=== PATIENT | female | born 1960 | race Caucasian/White ===

== ENCOUNTER 2023-08-01 16:01 | Emergency (ER) | payer OTHER, SELFPAY ==
[2023-08-01 16:06] VITALS: BP 145/49; PULSE 86; RESP 18; O2SAT 99; BMI 28.8
--- NOTE | 2023-08-01 16:20 | PC.NURSE ---
Right ring finger red and swollen, patient denies injury to area, ice pack applied.
--- NOTE | 2023-08-01 16:37 | PC.NURSE ---
Patient has ice on right hand, swelling to ring finger slightly decreased with use of ice.
--- NOTE | 2023-08-01 17:15 | PC.NURSE ---
Ring removed from right ring finger using tourniquet and KY jelly. Right ring finger remains red and swollen, ice pack reapplied after ring removal.
--- NOTE | 2023-08-01 17:21 | ED.EXTPRO1 ---
HPI - Extremity Problem General Chief complaint: Extremity Problem, Nontraumatic Stated complaint: Upper Pain Time Seen by Provider: 08/01/23 17:15 Source: patient Mode of arrival: walk-in History of Present Illness HPI Narrative: patient had pain and swelling noted over her distal phalanx of her right ring finger. She denies any history of trauma or injury. She is not running a fever. She has no immunocompromising diseases. She denies any history of diabetes or previous infections. She's not had fever shakes or chills. Has no other soft tissue infections. She is otherwise healthy. She's not on any antibiotics. Related Data Home Medications Medication Instructions Recorded Confirmed No Known Home Medications 08/01/23 08/01/23 Allergies Allergy/AdvReac Type Severity Reaction Status Date / Time morphine AdvReac Intermediate Verified 08/01/23 16:06 penicillin G AdvReac Intermediate Verified 08/01/23 16:06 Sulfa (Sulfonamide AdvReac Intermediate Verified 08/01/23 16:06 Antibiotics) Exam Narrative Exam Narrative: problem focused examination shows modest early soft tissue swelling at the base of the nail the right ring finger there is no felon or abscess. The pulp space of the distal phalanx is not tender most of this is on the dorsum surface of the distal phalanx only. The forearm and the wrist are normal. No evidence of viral lesions Constitutional Vital Signs, click to edit/add: Last Vital Signs Pulse 86 08/01/23 16:06 Resp 18 08/01/23 16:06 BP 145/49 H 08/01/23 16:06 Pulse Ox 99 08/01/23 16:06 O2 Del Method Room Air 08/01/23 16:06 Course Vital Signs Vital signs: Vital Signs Pulse Rate 86 08/01/23 16:06 Respiratory Rate 18 08/01/23 16:06 Blood Pressure 145/49 H 08/01/23 16:06 Pulse Oximetry 99 08/01/23 16:06 Oxygen Delivery Method Room Air 08/01/23 16:06 Pulse Rate 86 08/01/23 16:06 Respiratory Rate 18 08/01/23 16:06 Blood Pressure 145/49 H 08/01/23 16:06 Pulse Oximetry 99 08/01/23 16:06 Oxygen Delivery Method Room Air 08/01/23 16:06 Discharge Plan Discharge Chief Complaint: Extremity Problem, Nontraumatic Clinical Impression: Infected finger Patient Disposition: Home, Self-Care Time of Disposition Decision: 17:22 Prescriptions / Home Meds: No Action No Known Home Medications Additional Instructions: Keflex four times a day, take two tonight/continue warm compresses/topical bacitracin Stand Alone Forms: Portal Instructions Referrals: Physician,Non-Staff, MD [Primary Care Provider] - 1 week
== END 2023-08-01 17:31 | disposition home or self-care (01) ==
PROVIDERS: Emergency Provider Emergency Medicine Emergency Medical Services
DX: L08.9 Local infection of the skin and subcutaneous tissue, unspecified (principal)
CPT/HCPCS: 99283

== ENCOUNTER 2023-11-13 16:58 | Emergency (ER) | payer OTHER, SELFPAY ==
[2023-11-13] VITALS (13 sets, daily range): BP systolic 139–158; BP diastolic 82–91; PULSE 56–67; TEMP 36.4; O2SAT 96–100; BMI 28.4
--- NOTE | 2023-11-13 17:07 | ECG_ITS ---
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
[2023-11-13] MEDS: KETOROLAC TROMETHAMINE 30 MG/ML VIAL 15 MG IVP (17:18)
[2023-11-13] MEDS: 0.9 % SODIUM CHLORIDE 1,000 ML 1000 ML IV (17:18)
[2023-11-13] MEDS: ONDANSETRON PF 4 MG/2 ML VIAL IV (17:18)
--- OUTSIDE RECORDS SUMMARY | 2023-11-13 17:28 | XMS_ITS | CCD ---
Author Organization [facility] Care Team Providers Care Grain Miller Helper Name Role Phone Kirstin Wei Primary Care Provider [phone] Nata WOODARD - CHRONOMETER ADJUSTERAlexys Primary Care Provide r ALEXYS HOWARD Primary Care Unavailable VANNESA MUELLER Referring Unavailable VANNESA MUELLER Referring Unavailable ALEXYS HOWARD Primary Care Unavailable Chadd WOODARD - CHRONOMETER ADJUSTER, Jenelle Barrera [facility] Primary Care Unavailable PAY ., DR MEJIA Admitting Unavailable PAY ., DR MEJIA Attending Unavailable Mansoor Galvez Consulting Unavailable MANDY ., KASIE DE LA VEGA Consulting Unavailgeo e Chadd MICROFABRICATION ENGINEER MANAGER - CHRONOMETER ADJUSTER, Jenelle Bruce Primary Care Provide r JENELLE FLORENTINO Primary Care Unavailable JENELLE FLORENTINO M Referring Unavailable TIARRA FLORENTINOH M Primary Care Unavailable MALLORY, SARAH N Admitting Unavailable SARAH TAMEZ Attending Unavailable JENELLE FLORENTINO M Primary Care Unavailable MALLORY, SARAH N Referring Unavailable DIDI FLORENTINONAH M Primary Care Unavailable TIARRA FLORENTINOH M Referring Unavailable CHADD JENELLE M Primary Care Unavailable DIDI FLORENTINONAH M Referring Unavailable BROOK MINER Attending Unavailable Allergies Allergy Classification Reported Allergen(s) Allergy Type Date of Onset Reaction(s) Facility (5 sources) Latex Propensity to adverse reactions to drug 0 Rash [facility] [place] (4 sources) Grass pollen Propensity to adverse reactions to drug 1 [employer] [facility] Phone: (4 sources) MITE EXTRACT Drug Allergy 1 [employer] Phone: (4 sources) Mold Extract Drug Allergy [facility] [employer] Phone: (4 sources) Naproxen Drug Allergy 1 [employer] (4 sources) Penicillins Propensity to adverse reactions to drug 1 [employer] Phone: (4 sources) Sulfonamides (Antibiotic) Propensity to adverse reactions to drug 1 [employer] Phone: (4 sources) watermelon preparation Drug Allergy 1 [employer] Phone: (4 sources) Morphine And Related Propensity to adverse reactions to drug 1 Other (See Comments) [employer] Phone: (4 sources) Soybean-Containi ng Drug Products Propensity to adverse reactions to drug 1 [employer] Phone: (4 sources) Tree Extract Propensity to adverse reactions to drug 1 [employer] Phone: (1 source) Melon Drug allergy (disorder) 3 [facility] (1 source) Morphine Drug Allergy 3 [facility] (1 source) Penicillin Drug Allergy 3 [facility] (1 source) Soy protein Drug allergy (disorder) 3 [facility] (1 source) Sulfonamides (Antibiotic) Drug allergy (disorder) 3 [facility] NEGATED: Highlighted row has been ruled out! (4 sources) Other Propensity to adverse reactions 1 [employer] Phone: Medications Current Medications Medication Drug Class(es) Dates Sig (Normalized) Sig (Original) calamine 80 mg/ml / zinc oxide 80 mg/ml topical lotion (1 source) Start: 0 V-R CALAMINE LOTN Apply 10 mLs topically 2 times daily as needed (Itching) 177 mL 0 02/20/2020 Active calcium chloride 0.0014 meq/ml / potassium chloride 0.004 meq/ml / sodium chloride 0.103 meq/ml / sodium lactate 0.028 meq/ml injectable solution (1 source) Start: 3 lactated ringers IV soln infusion methylPREDNISolone 4 mg oral tablet (1 source) Corticosteroid Start: 0 End: 0 methylPREDNISolone (MEDROL, FRANCK,) 4 MG tablet Take by mouth. 1 kit 0 02/20/2020 02/26/2020 Active Zinc (2 sources) take 1 tablet by mouth once daily zinc 50 MG TABS tablet Take 50 mg by mouth daily 0 Active Completed/Discontinued Medications Medication Drug Class(es) Dates Sig (Normalized) Sig (Original) cholecalciferol 0.05 mg oral capsule (4 sources) Vitamin D take 2 capsules by mouth once daily Cholecalciferol (VITAMIN D3) 50 MCG (1999) CAPS Take 2 capsules by mouth daily 0 Suspended magnesium oxide 500 mg oral capsule (2 sources) take 1 capsule by mouth once daily Magnesium 500 MG CAPS Take 1 capsule by mouth nightly 0 Suspended Multiple Vitamins-Minerals (THERAPEUTIC MULTIVITAMIN-MINERALS) tablet (4 sources) take 1 tablet by mouth once daily Multiple Vitamins-Minerals (THERAPEUTIC MULTIVITAMIN-MINERALS) tablet Take 1 tablet by mouth daily 0 Suspended take 1 tablet by mouth once zhanna y Multiple Vitamins-Minerals (THERAPEUTIC MULTIVITAMIN-MINERALS) tablet Take 1 tablet by mouth daily 0 Active potassium gluconate 2.5 meq oral tablet (2 sources) take 1 tablet by mouth once daily Potassium Gluconate 595 (99 K) MG TABS Take 1 tablet by mouth nightly 0 Suspended predniSONE 20 mg oral tablet (1 source) Start: 02-20-2020 End: 02-20-2020 predniSONE (DELTASONE) tablet 40 mg Start: 02-20-2020 End: 02-20-2020 predniSONE (DELTASONE) table t 40 mg zinc gluconate 50 mg oral tablet (2 sources) take 1 tablet by aniceto once daily zinc 50 MG TABS tablet Take 1 tablet by mouth daily 0 Suspended Problems Active Problems Problem Classification Problem Date Documented Date Episodic/Chronic Asthma (3 sources) Asthma; Translations: [Unspecified asthma, uncomplicated] Onset: 08-24-2022 08-24-2022 Chronic Influenza (1 source) Influenza due to unidentified influenza virus with other respiratory manifestations; Translations: [FLU D/T UNIDENT FLU VIR RESP MANIF] Onset: 10-19-2022 Episodic Other screening for suspected conditions (not mental disorders or infectious disease) (5 sources) Patient encounter status; Translations: [Encounter for screening for lipoid disorders] Onset: 08-24-2022 Episodic Residual codes; unclassified (1 source) Postmenopausal state; Translations: [Asymptomatic menopausal state] Episodic Residual codes; unclassified (1 source) Asymptomatic menopausal state; Translations: [Asymptomatic menopausal state] Onset: 03-09-2023 Episodic Unclassified (2 sources) Patient encounter status; Translations: [Well woman exam (no gynecological exam)] Unclassified (3 sources) COUGH, UNSPECIFIED; Translations: [COUGH, UNSPECIFIED] Onset: 10-19-2022 Unclassified (1 source) CONTACT W/AND (SUSP) EXPOS COVID-19; Translations: [CONTACT W/AND (SUSP) EXPOS COVID-19] Onset: 10-19-2022 Past or Other Problems Problem Classification Problem Date Documented Da te Episodic/Chronic Allergic reactions (5 sources) Urticaria; Translations: [History of immune disorder] Onset: 06-02-2021 06-02-2021 Episodic Cancer of cervix (3 sources) History of malignant neoplasm of cervix; Translations: [Personal history of malignant neoplasm of cervix uteri] Onset: 08-24-2022 08-24-2022 Episodic Fracture of upper limb (4 sources) Fracture of hand; Translations: [Unspecified fracture of unspecified wrist and hand, initial encounter for closed fracture] Onset: 06-02-2021 06-02-2021 Episodic Immunizations and screening for infectious disease (4 sources) Viral screening status; Translations: [Encounter for screening for other viral diseases] Onset: 08-24-2022 Episodic Other bone disease and musculoskeletal deformities (6 sources) Osteopenia; Translations: [Other specified disorders of bone density and structure, unspecified site] Onset: 06-02-2021 06-02-2021 Episodic Other bone disease and musculoskeletal deformities (1 source) Other specified disorders of bone density and structure, unspecified site; Translations: [Other specified disorders of bone density and structure, unspecified site] Onset: 06-02-2021 Episodic Residual codes; unclassified (4 sources) Family history of diabetes mellitus; Translations: [Family history of diabetes mellitus] Onset: 08-24-2022 Episodic Residual codes; unclassified (1 source) Family history of diabetes mellitus; Translations: [Family history of diabetes mellitus] Onset: 08-24-2022 Episodic Unclassified (1 source) COUGH, UNSPECIFIED; Translations: [COUGH, UNSPECIFIED] Onset: 10-15-2022 Results Test Name Value Interpretation Reference Range Facil it Colonoscopy studyon 04-12-20 No dictation [facility] Colonoscopy studyOrdered By: User Epic on 04-12-2023 [facility] [employer] Work Phone: Surgical Pathology Reporton 04-12-2023 Surgical Pathology Report (NOTE) Path Number: [id number] -- Diagnosis -- A. SIGMOID POLYP, BIOPSY: Hyperplastic polyp. Kena Ga M.D. Electronically Signed Out kmg2/04/14/2023 Clinical Information Pre-Op Diagnosis: COLON CANCER SCREENING Operative Findings: SIGMOID COLON POLYP Operation Performed: COLORECTAL CANCER SCREENING, NOT HIGH RISK cd Source of Specimen A: SIGMOID POLYP Gross Description LOUISE JOHNSON SIGMOID COLON POLYP Received in formalin is one garcia-white tissue fragment, 0.5 x 0.3 x 0.3 cm. Entirely 1cs. jj tm SHAGGY/cd1:04/12/2023 Microscopic Description Microscopic examination performed. Processing Lab: [address] [id number] Interpretation Performed at [address] [id number] SURGICAL PATHOLOGY CONSULTATION Patient Name: LOIUSE JOHNSON [facility] Rec: [id number] [facility] [employer] [facility] ANATOMIC PATHOLOGY [address] [place] [address]. [place], [place] [address] [facility] DEXA BONE DENSITY AXIAL SKEL ETONon 03-09-2023 DEXA BONE DENSITY AXIAL SKELETON EXAMINATION: BONE DENSITOMETRY 03/09/2023 1:16 pm TECHNIQUE: A bone density dual x-ray absorptiometry (DXA) scan was performed of the left hip and left forearm on a Employee Benefit Plans system. COMPARISON: 01/03/2020 HISTORY: ORDERING SYSTEM PROVIDED HISTORY: Osteopenia, unspecified location Gender: F Age: 62 y/o FINDINGS: LEFT TOTAL HIP: BMD: 0.827 g/cm2 T-score: -1.4 Z-score: -0.5 LEFT FEMORAL NECK: BMD: 0.772 g/cm2 T-score: -1.9 Z-score: -0.7 There has been no statistically significant change in the bone mineral density of the total hip since the prior exam date listed above. LEFT FOREARM (RADIUS 1/3) BMD: 0.741 g/cm2 T-score: -1.5 Z-score: -0.3 FRAX: 10-year fracture risk is performed using the [employer] FRAX calculator based on patient-reported risk factors. Major osteoporotic fracture: 10.0% Hip fracture: 1.3% Other situations known to alter the reliability of the FRAX score should be considered when making treatment decisions, including chronic glucocorticoid use and past treatments. Further guidance on treatment can be found at the National Osteoporosis Foundation's website bonesource.org. IMPRESSION: Osteopenia by WHO criteria. RECOMMENDATIONS: 1. All patients should optimize their calcium and vitamin D intake. 2. Consider FDA-approved medical therapies in postmenopausal women and men aged 50 years and older, based on the following: - A hip or vertebral (clinical or morphometric) fracture - T-score less than or equal to -2.5 at the femoral neck or spine after appropriate evaluation to exclude secondary causes - Low bone density (T-score between -1.0 and -2.5 at the femoral neck or spine) and a 10-year probability of a hip fracture greater than or equal to 3% or a 10-year probability of a major osteoporosis-related fracture greater than or equal to 20% based on FRAX calculation. - Clinician judgment and/or patient preferences may indicate treatment for people with 10-year fracture probabilities above or below these levels - Further guidance on treatment can be found at the National Osteoporosis Foundation's website bonesource.org. 3. Patients with diagnosis of osteoporosis or at high risk for fracture should have regular bone mineral density tests. For patients eligible for Medicare, routine testing is allowed once every 2 years. The testing frequency can be increased to one year for patients who have rapidly progressing disease, those who are receiving or discontinuing medical therapy to restore bone mass or have additional risk factors. Template code: [id number] Interpreted by: Brian Kline MD Signed by: Brian Kline MD 03/09/23 Final result Normal [facility] Osteopenia by WHO criteria. RECOMMENDATIONS: 1. All patients should optimize their calcium and vitamin D intake. 2. Consider FDA-approved medical therapies in postmenopausal women and men aged 50 years and older, based on the following: - A hip or vertebral (clinical or morphometric) fracture - T-score less than or equal to -2.5 at the femoral neck or spine after appropriate evaluation to exclude secondary causes - Low bone density (T-score between -1.0 and -2.5 at the femoral neck or spine) and a 10-year probability of a hip fracture greater than or equal to 3% or a 10-year probability of a major osteoporosis-related fracture greater than or equal to 20% based on FRAX calculation. - Clinician judgment and/or patient preferences may indicate treatment for people with 10-year fracture probabilities above or below these levels - Further guidance on treatment can be found at the National Osteoporosis Foundation's website bonesource.org. 3. Patients with diagnosis of osteoporosis or at high risk for fracture should have regular bone mineral density tests. For patients eligible for Medicare, routine testing is allowed once every 2 years. The testing frequency can be increased to one year for patients who have rapidly progressing disease, those who are receiving or discontinuing medical therapy to restore bone mass or have additional risk factors. Template code: [id number] [facility] EXAMINATION: BONE DENSITOMETRY 03/09/2023 1:16 pm TECHNIQUE: A bone density dual x-ray absorptiometry (DXA) scan was performed of the left hip and left forearm on a Employee [employer] system. COMPARISON: 01/03/2020 HISTORY: ORDERING SYSTEM PROVIDED HISTORY: Osteopenia, unspecified location Gender: F Age: 62 y/o FINDINGS: LEFT TOTAL HIP: BMD: 0.827 g/cm2 T-score: -1.4 Z-score: -0.5 LEFT FEMORAL NECK: BMD: 0.772 g/cm2 T-score: -1.9 Z-score: -0.7 There has been no statistically significant change in the bone mineral density of the total hip since the prior exam date listed above. LEFT FOREARM (RADIUS 1/3) BMD: 0.741 g/cm2 T-score: -1.5 Z-score: -0.3 FRAX: 10-year fracture risk is performed using the [employer] FRAX calculator based on patient-reported risk factors. Major osteoporotic fracture: 10.0% Hip fracture: 1.3% Other situations known to alter the reliability of the FRAX score should be considered when making treatment decisions, including chronic glucocorticoid use and past treatments. Further guidance on treatment can be found at the National Osteoporosis Foundation's website bonesource.org. [facility] Brian Saunders MD - 03/09/2023 EXAMINATION: BONE DENSITOMETRY 03/09/2023 1:16 pm TECHNIQUE: A bone density dual x-ray absorptiometry (DXA) scan was performed of the left hip and left forearm on a [employer] system. COMPARISON: 01/03/2020 HISTORY: ORDERING SYSTEM PROVIDED HISTORY: Osteopenia, unspecified location Gender: F Age: 62 y/o FINDINGS: LEFT TOTAL HIP: BMD: 0.827 g/cm2 T-score: -1.4 Z-score: -0.5 LEFT FEMORAL NECK: BMD: 0.772 g/cm2 T-score: -1.9 Z-score: -0.7 There has been no statistically significant change in the bone mineral density of the total hip since the prior exam date listed above. LEFT FOREARM (RADIUS 1/3) BMD: 0.741 g/cm2 T-score: -1.5 Z-score: -0.3 FRAX: 10-year fracture risk is performed using the [employer] FRAX calculator based on patient-reported risk factors. Major osteoporotic fracture: 10.0% Hip fracture: 1.3% Other situations known to alter the reliability of the FRAX score should be considered when making treatment decisions, including chronic glucocorticoid use and past treatments. Further guidance on treatment can be found at the National Osteoporosis Foundation's website bonesource.org. IMPRESSION: Osteopenia by WHO criteria. RECOMMENDATIONS: 1. All patients should optimize their calcium and vitamin D intake. 2. Consider FDA-approved medical therapies in postmenopausal women and men aged 50 years and older, based on the following: - A hip or vertebral (clinical or morphometric) fracture - T-score less than or equal to -2.5 at the femoral neck or spine after appropriate evaluation to exclude secondary causes - Low bone density (T-score between -1.0 and -2.5 at the femoral neck or spine) and a 10-year probability of a hip fracture greater than or equal to 3% or a 10-year probability of a major osteoporosis-related fracture greater than or equal to 20% based on FRAX calculation. - Clinician judgment and/or patient preferences may indicate treatment for people with 10-year fracture probabilities above or below these levels - Further guidance on treatment can be found at the National Osteoporosis Foundation's website bonesource.org. 3. Patients with diagnosis of osteoporosis or at high risk for fracture should have regular bone mineral density tests. For patients eligible for Medicare, routine testing is allowed once every 2 years. The testing frequency can be increased to one year for patients who have rapidly progressing disease, those who are receiving or discontinuing medical therapy to restore bone mass or have additional risk factors. Template code: [id number] [facility] Radiology Study observation (narrative) [facility] DEXA BONE DENSITY AXIAL SKEL ETONOrdered By: Brian Morales on 03-09-2023 [facility] Work Phone: [facility] DIGITAL SCREEN KATIEMichelle BOSEGaviota 03-09-2023 [facility] DIGITAL SCREEN BILATERAL EXAMINATION: SCREENING DIGITAL BILATERAL MAMMOGRAM WITH TOMOSYNTHESIS, 03/09/2023 TECHNIQUE: Screening mammography was performed with tomosynthesis including MLO and CC views of the bilateral breasts. Computer aided detection was used for the interpretation of this exam. COMPARISON: January 03, 2020 and March 26, 2016 HISTORY: Screening. FINDINGS: Breasts are composed of scattered fibroglandular density. There is no dominant mass, architectural distortion or concerning grouping of microcalcification in either breast. IMPRESSION: No mammographic evidence of malignancy BIRADS: BIRADS - CATEGORY 1 Negative. Normal interval follow-up is recommended in 12 months. OVERALL ASSESSMENT - NEGATIVE A letter of notification will be sent to the patient regarding the results. The [employer] recommends annual mammograms for women 40 years and older. Interpreted by: Shaun Nguyen DO Signed by: Shaun Nguyen DO 03/09/23 Final result Normal [facility] BNPon 10-15-2022 Natriuretic peptide B (Bld) [Mass/Vol] 113.0 pg/mL Normal <=900.0 [facility] Comment on above: Performed By: #### C MP, BNP, HSTROPN #### [facility] [address] [place] [address] Dr. Roger Christianson CBC AUTO DIFFon 10-15-2022 BASO # 0.0 103/ul Normal 0.0-0.1 [facility] Comment on above: Performed By: #### C BC #### [facility] [address] [place] [address] Dr. Roger Christianson Basophils/100 WBC (Bld) 0.1 % Critically low 0.2-2.0 [facility] Comment on above: Performed By: #### C BC #### [facility] [address] [place] [address] Dr. Roger Christianson EO # 0.1 103/ul Normal 0.0-0.7 [facility] Comment on above: Performed By: #### C BC #### [facility] [address] [place] [address] Dr. Roger Christianson Eosinophils/100 WBC (Bld) 0.4 % Critically low 0.9-7.0 [facility] Comment on above: Performed By: #### C BC #### [facility] [address] [place] [address] Dr. Roger Christianson Erythrocyte distribution width (RBC) [Ratio] 12.8 % Normal 11.0-15.0 [facility] Comment on above: Performed By: #### C BC #### [facility] [address] [place] [address] Dr. Roger Christianson Hematocrit (Bld) [Volume fraction] 44.5 % Normal 36.0-48.0 [facility] Comment on above: Performed By: #### C BC #### [facility] [address] [place] [address] Dr. Roger Christianson Hemoglobin (Bld) [Mass/Vol] 14.8 g/dL Normal 12.0-16.0 [facility] Comment on above: Performed By: #### C BC #### [facility] [address] [place] [address] Dr. Roger Christianson IG # 0.06 10e3/ul Critically high 0.00-0.03 [facility] Comment on above: Performed By: #### C BC #### [facility] [address] [place] [address] Dr. Roger Christianson IG % 0.4 % Normal 0.0-0.5 [facility] Comment on above: Performed By: #### C BC #### [facility] [address] [place] [address] Dr. Roger Christianson LYMPH # 1.0 103/ul Critically low 1.2-3.8 [facility] Comment on above: Performed By: #### C BC #### [facility] [address] [place] [address] Dr. Roger Christianson Lymphocytes/100 WBC (Bld) 7.4 % Critically low 20.5-60.0 [facility] Comment on above: Performed By: #### C BC #### [facility] [address] [place] [address] Dr. Roger Christianson MANUAL DIFF REQ NO Normal [facility] Comment on above: Performed By: #### C BC #### [facility] [address] [place] [address] Dr. Roger Christianson MCH (RBC) [Entitic mass] 28.6 pg Normal 26.7-34.0 [facility] Comment on above: Performed By: #### C BC #### [facility] [address] [place] [address] Dr. Roger Christianson MCHC (RBC) [Mass/Vol] 33.3 g/dL Normal 29.9-35.2 [facility] Comment on above: Performed By: #### C BC #### [facility] [address] [place] [address] Dr. Roger Christianson MCV (RBC) [Entitic vol] 86.1 fL Normal 81.0-99.0 [facility] Comment on above: Performed By: #### C BC #### [facility] [address] [place] [address] Dr. Roger Christianson MONO # 0.2 103/ul Critically low 0.3-0.8 [facility] Comment on above: Performed By: #### C BC #### [facility] [address] [place] [address] Dr. Roger Christianson Monocytes/100 WBC (Bld) 1.5 % Critically low 1.7-12.0 [facility] Comment on above: Performed By: #### C BC #### [facility] [address] [place] [address] Dr. Roger Christianson NEUT # 12.3 103/ul Critically high 1.4-6.5 [facility] Comment on above: Performed By: #### C BC #### [facility] [address] [place] [address] Dr. Roger Christianson Neutrophils/100 WBC (Bld) 90.2 % Critically high 43.0-75.0 [facility] Comment on above: Performed By: #### C BC #### [facility] [address] [place] [address] Dr. Roger Christianson Platelet mean volume (Bld) [Entitic vol] 10.3 fL Normal 9.5-13.5 [facility] Comment on above: Performed By: #### C BC #### [facility] [address] [place] [address] Dr. Roger Christianson PLT 256 103/ul Normal 150-450 [facility] Comment on above: Performed By: #### C BC #### [facility] [address] [place] [address] Dr. Roger Christianson RBC 5.17 106/ul Normal 4.20-5.40 [facility] Comment on above: Performed By: #### C BC #### [facility] [address] [place] [address] Dr. Roger Christianson WBC 13.6 103/ul Critically high 4.0-11.0 [facility] Comment on above: Performed By: #### C BC #### [facility] [address] [place] [address] Dr. Roger Christianson CULTURE BLOODon 10-15-2022 Microscopic examination of blood, culture Culture Observations: NO GROWTH AT 5 DAYS. Normal [facility] Comment on above: Performed By: #### B LDCX1 #### [facility] [address] [place] [address] Dr. Roger Christianson Performed By: #### B LDCX2 #### [facility] [address] [place] [address] Dr. Roger Christianson [facility] SARS-CoV-2 (COVID-19) RNA BRYANNA+probe Ql (Unsp spec) Not detected Normal NOT DETECTED [facility] Comment on above: Result Comment: When diagnostic testing is negative, the possibility of a false negative should be considered in the context of a patient's recent exposures and the presence of clinical signs and symptoms consistent with SARS-CoV-2. This test is not yet approved or cleared by the [place] FDA. When there are no FDA-approved or cleared tests available, and other criteria are met, FDA can make tests available under an emergency access mechanism called an Emergency Use Authorization (EUA). The EUA for this test is supported by the Filling And Packing Supervisor of Health and Human Service's declaration that circumstances exist to justify the emergency use of in vitro diagnostics for the detection and/or diagnosis of the virus that causes COVID-19. This EUA will remain in effect for the duration of the COVID-19 declaration justifying emergency of IVDs, unless it is terminated or revoked by the FDA (after which the test may no longer be used). Performed By: #### C VDTBH #### [facility] [address] [place] [address] Dr. Roger Christianson PROF 14(COMP METB)on 023 Albumin [Mass/Vol] 3.8 g/dL Normal 3.4-5.0 [facility] Comment on above: Performed By: #### C MP, BNP, HSTROPN #### [facility] [address] [place] [address] Dr. Roger Christianson Albumin/Globulin [Mass ratio] 1.1 {ratio} Normal [facility] Comment on above: Performed By: #### C MP, BNP, HSTROPN #### [facility] [address] [address] [address] Roger Christianson ALP [Catalytic activity/Vol] 77 U/L Normal 46-116 [facility] Comment on above: Performed By: #### C MP, BNP, HSTROPN #### [facility] [address] [address] [address] Roger Christianson ALT [Catalytic activity/Vol] 19 U/L Normal 14-59 [facility] Comment on above: Performed By: #### C MP, BNP, HSTROPN #### [facility] [address] [place] [address] Dr. Roger Christianson Anion gap [Moles/Vol] 14.6 mmol/L Normal [facility] Comment on above: Performed By: #### C MP, BNP, HSTROPN #### [facility] [address] [place] [address] Dr. Roger Christianson AST [Catalytic activity/Vol] 15 U/L Normal 15-37 [facility] Comment on above: Performed By: #### C MP, BNP, HSTROPN #### [facility] [address] [place] [address] Dr. Roger Christianson Bilirubin [Mass/Vol] 0.8 mg/dL Normal 0.2-1.0 [facility] Comment on above: Performed By: #### C MP, BNP, HSTROPN #### [facility] [address] [place] [address] Dr. Roger Christianson Calcium [Mass/Vol] 8.9 mg/dL Normal 8.5-10.1 [facility] Comment on above: Performed By: #### C MP, BNP, HSTROPN #### [facility] [address] [place] [address] Dr. Roger Christianson Chloride [Moles/Vol] 102 mmol/L Normal 98-107 [facility] Comment on above: Performed By: #### C MP, BNP, HSTROPN #### [facility] [address] [place] [address] Dr. Roger Christianson CO2 [Moles/Vol] 23.2 mmol/L Normal 21.0-32.0 [facility] Comment on above: Performed By: #### C MP, BNP, HSTROPN #### [facility] [address] [place] [address] Dr. Roger Christianson Creatinine [Mass/Vol] 0.71 mg/dL Normal 0.55-1.02 [facility] Comment on above: Performed By: #### C MP, BNP, HSTROPN #### [facility] [address] [place] [address] Dr. Roger Christianson EGFR-AF CYMRAES >60 Normal >=60 [facility] Comment on above: Performed By: #### C MP, BNP, HSTROPN #### [facility] [address] [place] [address] Dr. Roger Christianson EGFR-NON AF CYMRAES >60 Normal >=60 [facility] Comment on above: Performed By: #### C MP, BNP, HSTROPN #### [facility] [address] [place] [address] Dr. Roger Christianson Globulin (S) [Mass/Vol] 3.4 g/dL Normal [facility] Comment on above: Performed By: #### C MP, BNP, HSTROPN #### [facility] [address] [place] [address] Dr. Roger Christianson Glucose [Mass/Vol] 108 mg/dL Critically high 74-106 [facility] Comment on above: Performed By: #### C MP, BNP, HSTROPN #### [facility] [address] [place] [address] Dr. Roger Christianson Potassium [Moles/Vol] 3.8 mmol/L Normal 3.5-5.1 [facility] Comment on above: Performed By: #### C MP, BNP, HSTROPN #### [facility] [address] [place] [address] Dr. Roger Christianson Protein [Mass/Vol] 7.2 g/dL Normal 6.4-8.2 [facility] Comment on above: Performed By: #### C MP, BNP, HSTROPN #### [facility] [address] [place] [address] Dr. Roger Christianson Sodium [Moles/Vol] 136 mmol/L Normal 136-145 [facility] Comment on above: Performed By: #### C MP, BNP, HSTROPN #### [facility] [address] [place] [address] Dr. Roger Christianson Urea nitrogen [Mass/Vol] 13.0 mg/dL Normal 7.0-18.0 [facility] Comment on above: Performed By: #### C MP, BNP, HSTROPN #### [facility] [address] [place] [address] Dr. Roger Christianson Urea nitrogen/Creatinine [Mass ratio] 18.3 mg/mg Normal [facility] Comment on above: Performed By: #### C MP, BNP, HSTROPN #### [facility] [address] [place] [address] Dr. Roger Christianson PROTIMEon 10-15-2022 INR Coag (PPP) [Relative time] 1.00 {INR} Normal [facility] Comment on above: Performed By: #### P TT, PT #### [facility] [address] [place] [address] Dr. Roger Christianson INR GUIDELINES SEE BELOW Normal [facility] Comment on above: Result Comment: JAYDA RED INR: 2.0 - 3.0 CONDITIONS NOT LISTED BELOW 2.5 - 3.5 FOR PROSTHETIC HEART VALVE REPLACEMENT 2.5 - 3.5 RECURRENT THROMBOSIS Performed By: #### P TT, PT #### [facility] [address] [place] [address] Dr. Roger Christianson PT Coag (PPP) [Time] 10.6 s Normal 9.0-11.6 [facility] Comment on above: Performed By: #### P TT, PT #### [facility] [address] [place] [address] Dr. Roger Christianson PTTon 10-15-2022 aPTT Coag (Bld) [Time] 28.5 s Normal 22.3-36.2 [facility] Comment on above: Performed By: #### P TT, PT #### [facility] [address] [place], [place] [address] Dr. Roger Christianson TROPONIN, HIGH SENSITIVITYon 10-15-2022 HSTROP <4.0 Normal 4.0-51.3 [facility] Comment on above: Result Comment: CUT- OFF POINTS HAVE BEEN ESTABLISHED BASED ON THE FOURTH UNIVERSAL DEFINITIONS OF MYOCARDIAL INFARCTION. THE UPPER REFERENCE LIMIT (URL) OF TROPONIN, DEFINED THE 99TH PERCENTILE OF cTnI DISTRIBUTION IN A REFERENCE POPULATION, HAS BEEN CONFIRMED THE DECISION THRESHOLD FOR [place] DIAGNOSIS. Performed By: #### C MP, BNP, HSTROPN #### [facility] [address] [place], [place] [address] Dr. Roger Christianson XR CHEST 1 Von 10-15-2022 XR CHEST 1 V EXAMINATION: XR CHEST 1 V HISTORY: COUGH , sinus congestion, headache, vomiting COMPARISON: No relevant comparison available. FINDINGS: LUNGS: No significant pulmonary parenchymal abnormalities. VASCULATURE: No increased pulmonary vasculature. PLEURA: No pneumothorax, effusion, or pleural thickening. CARDIAC: No cardiomegaly or cardiac silhouette abnormality. MEDIASTINUM: No visible mass or adenopathy. BONES: No fracture or visible bone lesion. OTHER: Negative. IMPRESSION: 1. No acute cardiopulmonary process. Electronically authenticated by: MANSOOR GALVEZ Date: 2022-10-15 15:45 Normal [facility] CBCon 08-24-2022 Erythrocyte distribution width (RBC) [Ratio] 12.1 % Normal 11.8-14.4 [facility] Comment on above: Performed By: #### H IVCMB, VD25, AHCV, GLYHGB #### [facility] [address] [place] [address] [employer]: Ricardo Moreno MD #### CP, CBC #### Lab [address] [place] [address] [employer]: Jeff Pfeiffer MD Hematocrit (Bld) [Volume fraction] 41.8 % Normal 36.3-47.1 [facility] Comment on above: Performed By: #### H IVCMB, VD25, AHCV, GLYHGB #### [facility] [address] [place], [place] [id number] [employer]: Ricardo Moreno MD #### CP, CBC #### [address] [place] [address] [employer]: Jeff Pfeiffer MD Hemoglobin (Bld) [Mass/Vol] 13.9 g/dL Normal 11.9-15.1 [facility] Comment on above: Performed By: #### H IVCMB, VD25, AHCV, GLYHGB #### [address] [address] [employer]: Ricardo Moreno MD #### CP, CBC #### [address] [place], [place] [id number] [employer]: Jeff Pfeiffer MD MCH (RBC) [Entitic mass] 30.8 pg Normal 25.2-33.5 [facility] Comment on above: Performed By: #### H IVCMB, VD25, AHCV, GLYHGB #### [address] [address] [employer]: Ricardo Moreno MD #### CP, CBC #### [address] [place] [address] [employer]: Jeff Pfeiffer MD MCHC (RBC) [Mass/Vol] 33.3 g/dL Normal 28.4-34.8 [facility] Comment on above: Performed By: #### H IVCMB, VD25, AHCV, GLYHGB #### [address] [address] [employer]: Ricardo Moreno MD #### CP, CBC #### [address] [place] [address] [employer]: Jeff Pfeiffer MD MCV (RBC) [Entitic vol] 92.7 fL Normal 82.6-102.9 [facility] Comment on above: Performed By: #### H IVCMB, VD25, AHCV, GLYHGB #### [address] [address] [employer]: Ricardo Moreno MD #### CP, CBC #### Lab [address] [place] [address] Dr. [address] [place] [id number] [employer]: Jeff Pfeiffer MD NRBC Automated 0.0 per 100 WBC Normal 0.0 [facility] Comment on above: Performed By: #### H IVCMB, VD25, AHCV, GLYHGB #### [address] [address] [employer]: Ricardo Moreno MD #### CP, CBC #### Lab [address] [place] [address] Dr. [place] [place] [id number] [employer]: Jeff Pfeiffer MD Platelet mean volume (Bld) [Entitic vol] 10.1 fL Normal 8.1-13.5 [facility] Comment on above: Performed By: #### H IVCMB, VD25, AHCV, GLYHGB #### [address] [address] [employer]: Ricardo Moreno MD #### CP, CBC #### [address] [place] [id number] [employer]: Jeff Pfeiffer MD Platelets (Bld) [#/Vol] 214 10*3/uL Normal 138-453 [facility] Comment on above: Performed By: #### H IVCMB, VD25, AHCV, GLYHGB #### [address] [address] [employer]: Ricardo Moreno MD #### CP, CBC #### Lab [address] [place] [address] Dr. [address] [id number] [employer]: Jeff Pfeiffer MD RBC (Bld) [#/Vol] 4.51 10*6/uL Normal 3.95-5.11 [facility] Comment on above: Performed By: #### H IVCMB, VD25, AHCV, GLYHGB #### [facility] [address] [place], [place] [id number] [employer]: Ricardo Moreno MD #### CP, CBC #### [address] [place] [id number] [employer]: Jeff Pfeiffer MD WBC (Bld) [#/Vol] 4.3 10*3/uL Normal 3.5-11.3 [facility] Comment on above: Performed By: #### H IVCMB, VD25, AHCV, GLYHGB #### [address] [place], [place] [id number] [employer]: Ricardo Moreno MD #### CP, CBC #### [address] [place] [address] [employer]: Jeff Pfeiffer MD Hematocrit (Bld) [Volume fraction] 41.8 % 36.3 - 47.1 % [facility] Hemoglobin (Bld) [Mass/Vol] 13.9 g/dL 11.9 - 15.1 g/dL [facility] MCH (RBC) [Entitic mass] 30.8 pg 25.2 - 33.5 pg [facility] MCHC (RBC) [Mass/Vol] 33.3 g/dL 28.4 - 34.8 g/dL [facility] MCV (RBC) [Entitic vol] 92.7 fL 82.6 - 102.9 fL [facility] NRBC Automated 0.0 0.0 per 100 WBC [facility] Platelet distribution width (Bld) [Ratio] 12.1 % 11.8 - 14.4 % [facility] Platelet mean volume (Bld) [Entitic vol] 10.1 fL 8.1 - 13.5 fL [facility] Platelets (Bld) [#/Vol] 214 10*3/uL [facility] RBC (Bld) [#/Vol] 4.51 10*6/uL 3.95 - 5.1 1 m/uL [facility] WBC (Bld) [#/Vol] 4.3 10*3/uL [facility] Comp Metabolic Profon 2022 Albumin [Mass/Vol] 4.4 g/dL Normal 3.5-5.2 [facility] Comment on above: Performed By: #### H IVCMB, VD25, AHCV, GLYHGB #### [address] [place] [address] [employer]: Ricardo Moreno MD #### CP, CBC #### Lab [address] [place] [address] [place] [address] [employer]: Jeff Pfeiffer MD Albumin/Glob Ratio 1.9 Normal 1.0-2.5 [facility] Comment on above: Performed By: #### H IVCMB, VD25, AHCV, GLYHGB #### [address] [address] [employer]: Ricardo Moreno MD #### CP, CBC #### Lab [address] [place] [address] Dr. [address] [id number] [employer]: Jeff Pfeiffer MD Alkaline Phos 81 U/L Normal 35-104 [facility] Comment on above: Performed By: #### H IVCMB, VD25, AHCV, GLYHGB #### [address] [address] [employer]: Ricardo Moreno MD #### CP, CBC #### Lab [address] [place] [address] Dr. [place], [place] [phone] [employer]: Jeff Pfeiffer MD ALT [Catalytic activity/Vol] 15 U/L Normal 5-33 [facility] Comment on above: Performed By: #### H IVCMB, VD25, AHCV, GLYHGB #### [facility] [address] [place] [address] [employer] Coach: Ricardo Moreno MD #### CP, CBC #### Lab [address] [place] [address] [place], [place] [phone] [employer]: Jeff Pfeiffer MD Anion gap [Moles/Vol] 11 mmol/L Normal 9-17 [facility] Comment on above: Performed By: #### H IVCMB, VD25, AHCV, GLYHGB #### [address] [place], [place] [id number] [employer]: Ricardo Moreno MD #### CP, CBC #### Lab [address] [place] [address] Dr. [place], [place] [phone] [employer]: Jeff Pfeiffer MD AST [Catalytic activity/Vol] 14 U/L Normal <32 [facility] Comment on above: Performed By: #### H IVCMB, VD25, AHCV, GLYHGB #### [address] [id number] [employer]: Ricardo Moreno MD #### CP, CBC #### [address] [place], [place] [id number] [employer]: Jeff Pfeiffer MD Bilirubin [Mass/Vol] 0.5 mg/dL Normal 0.3-1.2 [facility] Comment on above: Performed By: #### H IVCMB, VD25, AHCV, GLYHGB #### [address] [place], [place] [id number] [employer]: Ricardo Moreno MD #### CP, CBC #### Lab [address] [place] [address] [place], [place] [id number] [employer] Coach: Jeff Pfeiffer MD BUN/CRE Ratio 18 Normal 9-20 [facility] Comment on above: Performed By: #### H IVCMB, VD25, AHCV, GLYHGB #### [facility] [address] [place] [address] [employer] Coach: Ricardo Moreno MD #### CP, CBC #### [address] [place], [place] [phone] [employer]: Jeff Pfeiffer MD Calcium [Mass/Vol] 9.5 mg/dL Normal 8.6-10.4 [facility] Comment on above: Performed By: #### H IVCMB, VD25, AHCV, GLYHGB #### [address] [address] [employer]: Ricardo Moreno MD #### CP, CBC #### [address] [place] [id number] [employer]: Jeff Pfeiffer MD Chloride [Moles/Vol] 105 mmol/L Normal 98-107 [facility] Comment on above: Performed By: #### H IVCMB, VD25, AHCV, GLYHGB #### [address] [address] [employer]: Ricardo Moreno MD #### CP, CBC #### [address] [place] [address] [employer] Coach: Jeff Pfeiffer MD CO2 [Moles/Vol] 25 mmol/L Normal 20-31 [facility] Comment on above: Performed By: #### H IVCMB, VD25, AHCV, GLYHGB #### [address] [id number] [employer]: Ricardo Moreno MD #### CP, CBC #### [address] [place] [address] [employer] Coach: Jeff Pfeiffer MD Creatinine [Mass/Vol] 0.57 mg/dL Normal 0.50-0.90 [facility] Comment on above: Performed By: #### H IVCMB, VD25, AHCV, GLYHGB #### [address] [place] [address] [employer]: Ricardo Moreno MD #### CP, CBC #### Lab [address] [place] [address] [place] [address] [employer]: Jeff Pfeiffer MD GFR/1.73 sq M.predicted among non-blacks MDRD (S/P/Bld) [Vol rate/Area] mL/min/{1.73_m2} Normal >60 [facility] Comment on above: Result Comment: Effective May 03, 2022 These results are not intended for use in patients <18 years of age. eGFR results are calculated without a race factor using the 2020 CKD-EPI equation. Careful clinical correlation is recommended, particularly when comparing to results calculated using previous equations. The CKD-EPI equation is less accurate in patients with extremes of muscle mass, extra-renal metabolism of creatine, excessive creatine ingestion, or following therapy that affects renal tubular secretion. Performed By: #### H IVCMB, VD25, AHCV, GLYHGB #### [address] [id number] [employer]: Ricardo Moreno MD #### CP, CBC #### Lab [address] [place] [address] [place] [address] [employer] Coach: Jeff Pfeiffer MD Glucose [Mass/Vol] 101 mg/dL High 70-99 [facility] Comment on above: Performed By: #### H IVCMB, VD25, AHCV, GLYHGB #### [facility] [address] [place] [address] [employer]: Ricardo Moreno MD #### CP, CBC #### Lab [address] [place] [address] Dr. [place], [place] [id number] [employer]: Jeff Pfeiffer MD Potassium [Moles/Vol] 4.2 mmol/L Normal 3.7-5.3 [facility] Comment on above: Performed By: #### H IVCMB, VD25, AHCV, GLYHGB #### [address] [address] [employer]: Ricardo Moreno MD #### CP, CBC #### [address] [place], [place] [phone] [employer] Coach: Jeff Pfeiffer MD Protein [Mass/Vol] 6.7 g/dL Normal 6.4-8.3 [facility] Comment on above: Performed By: #### H IVCMB, VD25, AHCV, GLYHGB #### [address] [address] [employer]: Ricardo Moreno MD #### CP, CBC #### [address] [place] [id number] [employer] Coach: Jeff Pfeiffer MD Sodium [Moles/Vol] 141 mmol/L Normal 135-144 [facility] Comment on above: Performed By: #### H IVCMB, VD25, AHCV, GLYHGB #### [address] [address] [employer]: Ricardo Moreno MD #### CP, CBC #### [address] [place] [id number] [employer] Coach: Jeff Pfeiffer MD Urea nitrogen [Mass/Vol] 10 mg/dL Normal 8-23 [facility] Comment on above: Performed By: #### H IVCMB, VD25, AHCV, GLYHGB #### [address] [id number] [employer]: Ricardo Moreno MD #### CP, CBC #### [address] [place] [address] [employer] Coach: Jeff Pfeiffer MD Comprehensive Metabolic Pane [facility] 08-24-2022 Albumin [Mass/Vol] 4.4 g/dL 3.5 - 5.2 g/dL [facility] Albumin/Globulin [Mass ratio] 1.9 {ratio} 1.0 - 2.5 [facility] ALP (Bld) [Catalytic activity/Vol] 81 U/L 35 - 104 U/L [facility] ALT [Catalytic activity/Vol] 15 U/L 5 - 33 U/L [facility] Anion gap [Moles/Vol] 11 mmol/L 9 - 17 mmol/L [facility] AST [Catalytic activity/Vol] 14 U/L NINF - 32 U/L [facility] Bilirubin [Mass/Vol] 0.5 mg/dL 0.3 - 1.2 mg/dL [facility] Calcium [Mass/Vol] 9.5 mg/dL 8.6 - 10. 4 mg/dL [facility] Chloride [Moles/Vol] 105 mmol/L 98 - 107 mmol/L [facility] CO2 [Moles/Vol] 25 mmol/L 20 - 31 mmol/L [facility] Creatinine [Mass/Vol] 0.57 mg/dL 0.50 - 0.90 mg/dL [facility] GFR/1.73 sq M.predicted MDRD (S/P/Bld) [Vol rate/Area] - PINF [facility] Comment on above: Effective May 03, 2022 These results are not intended for use in patients <18 years of age. eGFR results are calculated without a race factor using the 2020 CKD-EPI equation. Careful clinical correlation is recommended, particularly when comparing to results calculated using previous equations. The CKD-EPI equation is less accurate in patients with extremes of muscle mass, extra-renal metabolism of creatine, excessive creatine ingestion, or following therapy that affects renal tubular secretion. Glucose [Mass/Vol] 101 mg/dL High 70 - 99 mg/dL [facility] Interpretation and review of laboratory results Abnormal [facility] Potassium [Moles/Vol] 4.2 mmol/L 3.7 - 5.3 mmol/L [facility] Protein [Mass/Vol] 6.7 g/dL 6.4 - 8.3 g/dL [facility] Sodium [Moles/Vol] 141 mmol/L 135 - 144 mmol/L [facility] Urea nitrogen (BldV) [Mass/Vol] 10 mg/dL 8 - 23 mg/dL [facility] Urea nitrogen/Creatinine (Bld) [Mass ratio] 18 9 - 20 [facility] HIV Ag/Abon 08-24-2022 HIV Ag/Ab Non-Reactive Normal NR [facility] Comment on above: Result Comment: No l aboratory evidence of HIV infection. If acute HIV infection is suspected, consider testing for HIV-1 RNA. Performed By: #### H IVCMB, VD25, AHCV, GLYHGB #### [facility] [address] [place], [place] [id number] [employer]: Ricardo Moreno MD #### CP, CBC #### Lab [address] [place] [address] [place] [address] [employer]: Jeff Pfeiffer MD HIV Screenon 08-24-2022 HIV Ag/Ab Non-Reactive NONREACTIVE [facility] Comment on above: No laboratory eviden ce of HIV infection. If acute HIV infection is suspected, consider testing for HIV-1 RNA. [facility] Hemoglobin A1Con 08-24-2022 Glucose [Mass/Vol] 111 mg/dL Normal [facility] Comment on above: Result Comment: The ADA and AACC recommend providing the estimated average glucose result to permit better patient understanding of their HBA1c result. Performed By: #### H IVCMB, VD25, AHCV, GLYHGB #### [facility] [address] [place], [place] [id number] [employer]: Ricardo oMreno MD #### CP, CBC #### Lab [address] [place] [address] [employer]: Jeff Pfeiffer MD HbA1c (Bld) [Mass fraction] 5.5 % Normal 4.0-6.0 [facility] Comment on above: Performed By: #### H IVCMB, VD25, AHCV, GLYHGB #### [facility] [address] [place], [place] [id number] [employer]: Ricardo Moreno MD #### CP, CBC #### Lab [address] [place] [address] [place] [address] [employer]: Jeff Pfeiffer MD Glucose [Mass/Vol] 111 mg/dL [facility] Comment on above: The ADA and AACC rec ommend providing the estimated average glucose result to permit better patient understanding of their HBA1c result. HbA1c (Bld) [Mass fraction] 5.5 % 4.0 - 6.0 % [facility] Hep C Abon 08-24-2022 Hep C Ab Non-Reactive Normal NR [facility] Comment on above: Result Comment: The hepatitis C procedure used in our laboratory is a Chemiluminescent test specific for three recombinant HCV antigens. A negative anti-HCV result indicates that the antibodies to hepatitis C virus are not present at this time. Individuals with reactive anti-HCV should be considered infected and infectious until proven otherwise. Confirmation of all equivocal or reactive results is recommended by ordering HCV RNA by PCR. Performed By: #### H IVCMB, VD25, AHCV, GLYHGB #### [facility] [address] [place] [address] [employer]: Ricardo Moreno MD #### CP, CBC #### Lab [address] [place] [address] [place] [address] [employer]: Jeff Pfeiffer MD Hepatitis C Antibodyon 08-24 Hepatitis C Ab Non-Reactive NONREACTIVE [facility] Comment on above: The hepatitis C procedure used in our laboratory is a Chemiluminescent test specific for three recombinant HCV antigens. A negative anti-HCV result indicates that the antibodies to hepatitis C virus are not present at this time. Individuals with reactive anti-HCV should be considered infected and infectious until proven otherwise. Confirmation of all equivocal or reactive results is recommended by ordering HCV RNA by PCR. [facility] Lipid Panelon 08-24-2022 Cholesterol [Mass/Vol] 171 mg/dL NINF - 200 mg/dL [facility] [employer] Comment on above: Cholesterol Guidelines: <200 Desirable 200-240 Borderline >240 Undesirable Cholesterol in HDL [Mass/Vol] 85 mg/dL 40 - PINF mg/dL [facility] [employer] Comment on above: HDL Guidelines: <40 Undesirable 40-59 Borderline >59 Desirable Cholesterol in LDL [Mass/Vol] 80 mg/dL 0 - 130 mg/dL [facility] [employer] Comment on above: LDL Guidelines: <100 Desirable 100-129 Near to/above Desirable 130-159 Borderline >159 Undesirable Direct (measured) LDL and calculated LDL are not interchangeable tests. Cholesterol.total/C holesterol in HDL [Mass ratio] 2 {ratio} NINF - 5 [facility] Triglyceride [Mass/Vol] 29 mg/dL NINF - 150 mg/dL [facility] [employer] Comment on above: Triglyceride Guidelines: <150 Desirable 150-199 Borderline 200-499 High >499 Very high Based on AHA Guidelines for fasting triglyceride, May 2012. [facility] [employer] Lipid Profileon 08-24-2022 Cholesterol [Mass/Vol] 171 mg/dL Normal <200 [facility] Comment on above: Result Comment: Cholesterol Guidelines: <200 Desirable 200-240 Borderline >240 Undesirable Performed By: #### L IPR #### [employer] [address] [place] [address] [id number] [employer]: Ricardo Moreno MD Cholesterol in HDL [Mass/Vol] 85 mg/dL Normal >40 [facility] Comment on above: Result Comment: HDL Guidelines: <40 Undesirable 40-59 Borderline >59 Desirable Performed By: #### L IPR #### [employer] [address] [place] [address] [id number] [employer]: Ricardo Moreno MD Cholesterol in LDL [Mass/Vol] 80 mg/dL Normal 0-130 [facility] Comment on above: Result Comment: LDL Guidelines: <100 Desirable 100-129 Near to/above Desirable 130-159 Borderline >159 Undesirable Direct (measured) LDL and calculated LDL are not interchangeable tests. Performed By: #### L IPR #### [employer] [address] [place] [address] [id number] [employer]: Ricardo Moreno MD Cholesterol.total/C holesterol in HDL [Mass ratio] 2.0 {ratio} Normal <5 [facility] Comment on above: Performed By: #### L IPR #### [facility] [address], [place] [id number] [employer]: Ricardo Moreno MD Triglyceride [Mass/Vol] 29 mg/dL Normal <150 [facility] Comment on above: Result Comment: Triglyceride Guidelines: <150 Desirable 150-199 Borderline 200-499 High >499 Very high Based on AHA Guidelines for fasting triglyceride, May 2012. Performed By: #### L IPR #### [facility] [address] [place] [address] [employer]: Ricardo Moreno MD Vitamin D 25 Hydroxyon 08-24 Vit D, 25-Hydroxy 50.8 ng/mL 29.9 - PIN F ng/mL [facility] Comment on above: Reference Range: Vitamin D status Range Deficiency <20 ng/mL Mild Deficiency 20-30 ng/mL Sufficiency 30-100 ng/mL Toxicity >100 ng/mL [facility] Vitamin D 25 OHon 08-24-2022 Vitamin D 25 OH 50.8 ng/mL Normal >29.9 [facility] Comment on above: Result Comment: Reference Range: Vitamin D status Range Deficiency <20 ng/mL Mild Deficiency 20-30 ng/mL Sufficiency 30-100 ng/mL Toxicity >100 ng/mL Performed By: #### H IVCMB, VD25, AHCV, GLYHGB #### [facility] [employer] [address] [place] [address] [employer]: Ricardo Moreno MD #### CP, CBC #### Lab [address] [place] [address] [employer]: Jeff Pfeiffer MD MRI KNEE RIGHT WO CONTRASTon 06-16-2021 MRI KNEE RIGHT WO CONTRAST RADRPT CLINICAL HISTORY: Right knee pain laterally, since a fall approximately one month ago. MRI RIGHT KNEE WITHOUT CONTRAST: TECHNIQUE: Axial STIR, coronal PD fat-saturated, sagittal PD fat-saturated, sagittal T1, and T2 images were obtained through the right knee. COMPARISON: Radiographs of 06/05/2021. FINDINGS: Medial compartment: The medial meniscus and medial compartment cartilage are intact. Lateral compartment: The lateral meniscus and lateral compartment cartilage are intact. Intercondylar notch: The ACL and PCL are intact. Collateral ligaments: Intact. Patellofemoral compartment: A couple of small approximately 2 mm areas of full-thickness articular cartilage loss and subchondral bone edema are noted in the inferior central to lateral patella. There is otherwise low-grade articular cartilage loss in the patella. The trochlear cartilage appears intact. Extensor mechanism: The patellar and distal quadriceps tendons are intact. A trace knee joint effusion is present. Edema is present in the anterior subcutaneous fat. The bone marrow is normal in signal, without bone marrow edema or signs of acute fracture. Report electronically signed by: Dr. Darian Linton IMPRESSION: 1. Small areas of full-thickness articular cartilage loss and subchondral bone edema in the inferior patella. Otherwise low-grade articular cartilage loss in the patella. 2. Trace knee joint effusion. Edema in the anterior subcutaneous fat. 3. Otherwise normal right knee MRI. Intact menisci, cruciate ligaments, and collateral ligaments. Pain of right knee when pt fell x 1 month ago. Lateral pain. Limited rom. Interpreted by: Darian Linton MD Signed by: Darian Linton MD 06/16/21 Final result Normal [facility] CBC Auto Differentialon 06-01 Absolute Eos # 0.07 [facility] Absolute Immature Granulocyte <0.03 [facility] Absolute Lymph # 1.96 [facility] alth Absolute Villalba # 0.41 [facility] lt Basophils (Bld) [#/Vol] 10*3/uL [employer] Basophils/100 WBC (Bld) 0 % 0 - 2 % [employer] Differential Type NOT REPORTED [employer] Eosinophils/100 WBC (Bld) 1 % 1 - 4 % [employer] Hematocrit (Bld) [Volume fraction] 43.6 % 36.3 - 47.1 % [employer] [facility] Hemoglobin.gastroin testinal spec 1 Ql (Stl) 14.0 g/dL 11.9 - 15.1 g/dL [employer] Immature granulocytes/100 WBC (Bld) 0 % 0 [facility] Lymph[facility]/100 WBC (Bld) 36 % 24 - 43 % [facility] MCH (RBC) [Entitic mass] 29.4 pg 25.2 - 33.5 pg [facility] MCHC (RBC) [Mass/Vol] 32.1 g/dL 28.4 - 34.8 g/dL [facility] MCV (RBC) [Entitic vol] 91.6 fL 82.6 - 102.9 fL [facility] Monocytes/100 WBC (Bld) 8 % 3 - 12 % [facility] NRBC Automated 0.0 0.0 per 100 WBC [facility] Platelet distribution width (Bld) [Ratio] 12.7 % 11.8 - 14.4 % [facility] Platelet Estimate NOT REPORTED [facility] Platelet mean volume (Bld) [Entitic vol] 10.6 fL 8.1 - 13.5 fL [facility] Platelets (Bld) [#/Vol] 216 10*3/uL [facility] RBC (Bld) [#/Vol] 4.76 10*6/uL 3.95 - 5.1 1 m/uL [facility] RBC (Bld) [#/Vol] NOT REPORTED [facility] Segmented neutrophils/100 WBC (Bld) 55 % 36 - 65 % [facility] Segs Absolute 3.[facility]ld[facility] [#/Vol] 5.5 10*3/uL [facility] WBC (Bld) [#/Vol] NOT REPORTED [facility] Comprehensive Metabolic Pane nevin 06-11-2021 Albumin [Mass/Vol] 4.4 g/dL 3.5 - 5.2 g/dL [facility] Albumin/Globulin [Mass ratio] 1.9 {ratio} [facility] ALP (Bld) [Catalytic activity/Vol] 83 U/L 35 - 104 U/L [facility] ALT [Catalytic activity/Vol] 17 U/L 5 - 33 U/L [facility] Anion gap [Moles/Vol] 11 mmol/L 9 - 17 mmol/L [facility] AST [Catalytic activity/Vol] 17 U/L <32 [facility] Bilirubin [Mass/Vol] 0.63 mg/dL 0.3 - 1.2 mg/dL [facility] Calcium [Mass/Vol] 9.5 mg/dL 8.6 - 10. 4 mg/dL [facility] Chloride [Moles/Vol] 97 mmol/L Low 98 - 107 mmol/L [facility] CO2 [Moles/Vol] 24 mmol/L 20 - 31 mmol/L [facility] Creatinine [Mass/Vol] 0.61 mg/dL 0.50 - 0.90 mg/dL [facility] Free PSA/Total PSA [Mass fraction] 6.7 g/dL 6.4 - 8.3 g/dL [facility] GFR >60 >60 mL/min [facility] GFR Non- >60 >60 mL/min [facility] Glucose [Mass/Vol] 94 mg/dL 70 - 99 mg/dL [facility] Interpretation and review of laboratory results Abnormal [facility] Potassium [Moles/Vol] 4.1 mmol/L 3.7 - 5.3 mmol/L [facility] Sodium [Moles/Vol] 132 mmol/L Low 135 - 144 mmol/L [facility] Urea nitrogen (BldV) [Mass/Vol] 11 mg/dL 8 - 23 mg/dL [facility] Urea nitrogen/Creatinine (Bld) [Mass ratio] 18 [facility] Hemoglobin A1Con 06-11-2021 Glucose [Mass/Vol] 114 mg/dL [facility] Comment on above: The ADA and AACC rec ommend providing the estimated average glucose result to permit better patient understanding of their HBA1c result. HbA1c (Bld) [Mass fraction] 5.6 % 4.0 - 6.0 % [facility] - Chemistry and C hemistry - challengeon 06-11-2021 GFR/1.73 sq M.predicted MDRD (S/P/Bld) [Vol rate/Area] [facility] Comment on above: Average GFR for 60-6 9 years old: 85 mL/min/1.73sq m Chronic Kidney Disease: <60 mL/min/1.73sq m Kidney failure: <15 mL/min/1.73sq m eGFR calculated using average adult body mass. Additional eGFR calculator available at: http://www.[employer]/multiple_crcl_2012.htm Stage 1: Some kidney damage normal GFR Stage 2: Mild kidney damage GFR 60-89 Stage 3: Moderate kidney damage GFR 30-59 Stage 4: Severe kidney damage GFR 15-29 Stage 5: Severe kidney damage GFR <15 ESRD - chronic treatment by dialysis or transplant Lipid Panelon 06-11-2021 Cholesterol [Mass/Vol] 191 mg/dL <200 [employer] Comment on above: Cholesterol Guidelines: <200 Desirable 200-240 Borderline >240 Undesirable Cholesterol in HDL [Mass/Vol] 107 mg/dL >40 [employer] Comment on above: HDL Guidelines: <40 Undesirable 40-59 Borderline >59 Desirable Cholesterol in LDL [Mass/Vol] 75 mg/dL 0 - 130 mg/dL [employer] Comment on above: LDL Guidelines: <100 Desirable 100-129 Near to/above Desirable 130-159 Borderline >159 Undesirable Direct (measured) LDL and calculated LDL are not interchangeable tests. Cholesterol in VLDL [Mass/Vol] NOT REPORTED 1 - 30 mg/dL [employer] Cholesterol.total/C holesterol in HDL [Mass ratio] 1.8 {ratio} <5 [employer] Triglyceride [Mass/Vol] 47 mg/dL <150 [employer] Comment on above: Triglyceride Guidelines: <150 Desirable 150-199 Borderline 200-499 High >499 Very high Based on AHA Guidelines for fasting triglyceride, May 2012. [employer] Microscopic Urinalysison - [employer] Amorphous, UA NOT REPORTED None [facility] Bacteria, UA TRACE Abnormal None [employer] Casts UA NOT REPORTED /LPF [employer] Crystals, UA NOT REPORTED None /HPF [employer] [facility] th Epithelial Cells UA 5 TO 10 [employer] Interpretation and review of laboratory results Abnormal [employer] Mucus, UA NOT REPORTED None [employer] Other Observations UA NOT REPORTED NOT REQ. [employer] RBC, UA 2 TO 5 [employer] Renal Epithelial, UA NOT REPORTED 0 /HPF [employer] Trichomonas, UA NOT REPORTED None [employer] [facility] WBC, UA 2 TO 5 [employer] Yeast, UA NOT REPORTED None [employer] No Panel Informationon 06-11 [employer] Phosphoruson 06-11-2021 Phosphate [Mass/Vol] 4.0 mg/dL 2.6 - 4.5 mg/dL [employer] TSH with Reflexon 06-11-2021 TSH Qn 4.43 m[IU]/L [employer] Urinalysison 06-11-2021 Bilirubin Urine Negative NEGATIVE [facility] Color, UA Yellow Yellow [employer] Glucose, Ur Negative NEGATIVE [facility] Interpretation and review of laboratory results Abnormal [facility] Ketones Ql (U) Negative NEGATIVE [facility] Leukocyte esterase Test strip Ql (U) SMALL Abnormal NEGATIVE [facility] Nitrite, Urine Negative NEGATIVE [facility] pH, UA 6.5 [facility] Protein, UA Negative NEGATIVE [facility] Specific [place], UA <1.005 Low [facility] Turbidity UA Clear Clear [facility] Urinalysis Comments NOT REPORTED [facility] Urine Hgb Negative NEGATIVE [facility] Urobilinogen, Urine Normal Normal [facility] XR KNEE RIGHT (MIN 4 VIEWS)o n 06-05-2021 XR KNEE RIGHT (MIN 4 VIEWS) RADRPT HISTORY: Knee pain. TECHNIQUE: Four views of the right knee were obtained. COMPARISON: None. FINDINGS: No fracture or dislocation is seen. No joint effusion is seen. The soft tissues are normal. Report electronically signed by: Dr. Reji St IMPRESSION: Negative. Fall 05/16. General knee pain since Interpreted by: Reji St MD Signed by: Reji St MD 06/05/21 Final result Normal [facility] DIGITAL SCREEN W OR WO C AD BILATERALon 01-03-2020 Focal asymmetry upper outer left breast anterior depth with additional mammographic workup advised. Full workup may require ultrasonography. BI-RADS 0 BIRADS: BIRADS - CATEGORY 0 Additional imaging is recommended at this time. OVERALL ASSESSMENT - INCOMPLETE:NEED ADDITIONAL IMAGING EVALUATION. [place] EXAMINATION: SCREENING DIGITAL BILATERAL MAMMOGRAM WITH TOMOSYNTHESIS, 01/03/2020 TECHNIQUE: Screening mammography of the bilateral breasts was performed with tomosynthesis. 2D standard and 3D tomosynthesis combination imaging performed through both breasts in the MLO and CC projection. Computer aided detection was utilized in the interpretation of this exam. COMPARISON: None. Baseline study. HISTORY: Screening. Patient states history of other cancer at age 32, not documented in chart. Oral contraceptive usage x3 months. Negative history of hormonal replacement therapy. No prior breast interventions. FINDINGS: The breasts are composed of scattered fibroglandular densities. No skin thickening, nipple contour changes, malignant type microcalcifications, or areas of architectural distortion are noted. The patient has a focal asymmetry upper outer left breast anterior depth with additional mammographic workup advised. Full workup may require ultrasonography. [place], [place], [employer] Incoming Radiant Results From [facility] - 01/03/2020 10:25 AM EDT EXAMINATION: SCREENING DIGITAL BILATERAL MAMMOGRAM WITH TOMOSYNTHESIS, 01/03/2020 TECHNIQUE: Screening mammography of the bilateral breasts was performed with tomosynthesis. 2D standard and 3D tomosynthesis combination imaging performed through both breasts in the MLO and CC projection. Computer aided detection was utilized in the interpretation of this exam. COMPARISON: None. Baseline study. HISTORY: Screening. Patient states history of other cancer at age 32, not documented in chart. Oral contraceptive usage x3 months. Negative history of hormonal replacement therapy. No prior breast interventions. FINDINGS: The breasts are composed of scattered fibroglandular densities. No skin thickening, nipple contour changes, malignant type microcalcifications, or areas of architectural distortion are noted. The patient has a focal asymmetry upper outer left breast anterior depth with additional mammographic workup advised. Full workup may require ultrasonography. IMPRESSION: Focal asymmetry upper outer left breast anterior depth with additional mammographic workup advised. Full workup may require ultrasonography. BI-RADS 0 BIRADS: BIRADS - CATEGORY 0 Additional imaging is recommended at this time. OVERALL ASSESSMENT - INCOMPLETE:NEED ADDITIONAL IMAGING EVALUATION. [place] CBC Auto Differentialon - Basophils (Bld) [#/Vol] 10*3/uL [place] Basophils/100 WBC (Bld) 0 % 0 - 2 % [place] Differential Type NOT REPORTED [place] Eosinophils (Bld) [#/Vol] 0.07 10*3/uL [place] Eosinophils/100 WBC (Bld) 1 % 1 - 4 % [place] Erythrocyte distribution width (RBC) [Ratio] 13.1 % 11.8 - 14.4 % [place] Hematocrit (Bld) [Volume fraction] 43.2 % 36.3 - 47.1 % [place] Hemoglobin (Bld) [Mass/Vol] 13.4 g/dL 11.9 - 15.1 g/dL [place] Immature granulocytes (Bld) [#/Vol] 0 % 0 [place] Immature granulocytes (Bld) [#/Vol] 10*3/uL [place] Lymphocytes (Bld) [#/Vol] 1.89 10*3/uL [place] Lymphocytes/100 WBC (Bld) 30 % 24 - 43 % [place] MCH (RBC) [Entitic mass] 28.9 pg 25.2 - 33.5 pg [place] MCHC (RBC) [Mass/Vol] 31.0 g/dL 28.4 - 34.8 g/dL [place] MCV (RBC) [Entitic vol] 93.1 fL 82.6 - 102.9 fL [place] Monocytes (Bld) [#/Vol] 0.49 10*3/uL [place] Monocytes/100 WBC (Bld) 8 % 3 - 12 % [place] Platelet mean volume (Bld) [Entitic vol] 11.6 fL 8.1 - 13.5 fL [place] Platelets (Bld) [#/Vol] NOT REPORTED [place] Platelets (Bld) [#/Vol] 203 10*3/uL [place] RBC (Bld) [#/Vol] 4.64 10*6/uL 3.95 - 5.1 1 m/uL [place] RBC morphology finding Nom (Bld) NOT REPORTED [place] Segmented neutrophils/100 WBC (Bld) 61 % 36 - 65 % [place] Segs Absolute 3.75 [place] WBC (Bld) [#/Vol] 0.0 10*3/uL 0.0 per 100 WBC [place] WBC (Bld) [#/Vol] 6.2 10*3/uL [place] WBC Morphology NOT REPORTED [place] Comprehensive Metabolic Pane nevin 09-20-2019 Albumin [Mass/Vol] 4.3 g/dL 3.5 - 5.2 g/dL [place] Albumin/Globulin [Mass ratio] 1.7 {ratio} [place] ALP [Catalytic activity/Vol] 72 U/L 35 - 104 U/L [place] ALT [Catalytic activity/Vol] 11 U/L 5 - 33 U/L [place] Anion gap [Moles/Vol] 14 mmol/L 9 - 17 mmol/L [place] AST [Catalytic activity/Vol] 15 U/L <32 [place] Bilirubin Ql (U) 0.58 mg/dL 0.3 - 1.2 mg/dL [place] Bun/Cre Ratio 16 [place] Calcium [Mass/Vol] 9.5 mg/dL 8.6 - 10. 4 mg/dL [place] Chloride [Moles/Vol] 96 mmol/L Low 98 - 107 mmol/L [place] CO2 [Moles/Vol] 25 mmol/L 20 - 31 mmol/L [place] Creatinine [Mass/Vol] 0.5 mg/dL 0.5 - 0.9 mg/dL [place] GFR >60 >60 mL/min [place] GFR Non- >60 >60 mL/min [place] Glucose [Mass/Vol] 101 mg/dL High 70 - 99 mg/dL [place] Interpretation and review of laboratory results Abnormal [place] Potassium [Moles/Vol] 4.1 mmol/L 3.7 - 5.3 mmol/L [place] Protein [Mass/Vol] 6.9 g/dL 6.4 - 8.3 g/dL [place] Sodium [Moles/Vol] 135 mmol/L 135 - 144 mmol/L [place] Urea nitrogen [Mass/Vol] 8 mg/dL 8 - 23 mg/dL [place] Hemoglobin A1Con 09-20-2019 Glucose [Mass/Vol] 111 mg/dL [place] Comment on above: The ADA and AACC rec ommend providing the estimated average glucose result to permit better patient understanding of their HBA1c result. HbA1c (Bld) [Mass fraction] 5.5 % 4.8 - 5.9 % [place] Lipid Panelon 09-20-2019 Cholesterol [Mass/Vol] 161 mg/dL <200 [place] Comment on above: Cholesterol Guidelines: <200 Desirable 200-240 Borderline >240 Undesirable Cholesterol in HDL [Mass/Vol] 79 mg/dL >40 [place] Comment on above: HDL Guidelines: <40 Undesirable 40-59 Borderline >59 Desirable Cholesterol in LDL [Mass/Vol] 72 mg/dL 0 - 130 mg/dL [place] Comment on above: LDL Guidelines: <100 Desirable 100-129 Near to/above Desirable 130-159 Borderline >159 Undesirable Direct (measured) LDL and calculated LDL are not interchangeable tests. Cholesterol in VLDL [Mass/Vol] NOT REPORTED 1 - 30 mg/dL [place] Cholesterol.total/C holesterol in HDL [Mass ratio] 2 {ratio} <5 [place] Triglyceride [Mass/Vol] 49 mg/dL <150 [place] Comment on above: Triglyceride Guidelines: <150 Desirable 150-199 Borderline 200-499 High >499 Very high Based on AHA Guidelines for fasting triglyceride, May 2012. Metabolic Panelon 09-20-2019 GFR/1.73 sq M predicted among non-blacks MDRD (S/P/Bld) [Vol rate/Area] [place] Comment on above: Average GFR for 60-6 9 years old: 85 mL/min/1.73sq m Chronic Kidney Disease: <60 mL/min/1.73sq m Kidney failure: <15 mL/min/1.73sq m eGFR calculated using average adult body mass. Additional eGFR calculator available at: http://www.[employer]/multiple_crcl_2011.htm Stage 1: Some kidney damage normal GFR Stage 2: Mild kidney damage GFR 60-89 Stage 3: Moderate kidney damage GFR 30-59 Stage 4: Severe kidney damage GFR 15-29 Stage 5: Severe kidney damage GFR <15 ESRD - chronic treatment by dialysis or transplant Vital Signs Date Time Vital Sign Value Performing Clinician Lalito zafar 04-12-2023 09:30-0400 Diastolic blood pressure 58 mm[Hg] Sarah Tamez MD Work Phone: [facility] 04-12-2023 09:30-0400 Heart rate 59 /min Sarah Tamez MD Work Phone: [employer] 04-12-2023 09:30-0400 Respiratory rate 16 /min Sarah Tamez MD Work Phone: [employer] 04-12-2023 09:30-0400 SaO2% (BldA) [Mass fraction] 97 % Sarah Tamez MD Work Phone: [employer] 04-12-2023 09:30-0400 Systolic blood pressure 111 mm[Hg] Sarah Tamez MD Work Phone: [employer] 04-12-2023 09:02-0400 Body temperature 96.91 [degF] Sarah Tamez MD Work Phone: [employer] 04-12-2023 07:30-0400 Body height 160 cm Sarah Tamez MD Work Phone: [employer] 04-12-2023 07:30-0400 Body mass index (BMI) [Ratio] 28.24 kg/m2 Sarah Tamez MD Work Phone: [employer] 04-12-2023 07:30-0400 Body weight 72.3 kg Sarah Tamez MD Work Phone: [employer] 02-20-2020 21:06-0400 Body Temperature 98.4 [degF] [facility] [place] 02-20-2020 21:06-0400 BP Diastolic 78 mm[Hg] [facility] [place] 02-20-2020 21:06-0400 BP Systolic 139 mm[Hg] [facility] [place] 02-20-2020 21:06-0400 Pulse (Heart Rate) 87 /min [facility] 02-20-2020 21:06-0400 Pulse Oximetry 97 % [facility] [place] 02-20-2020 21:06-0400 Respiratory Rate 18 /min [facility] Encounters Encounter Date Encounter Type Care Provider Facility Start: 07-20-2023 End: 07-20-2023 ambulatory [facility]ER Not Available Start: 04-12-2023 End: 04-12-2023 [facility] Start: 04-12-2023 End: 04-12-2023 Subsequent hospital visit by physician Sarah Tamez MD Work Phone: [facility] Comment on above: Colon cancer screeni ng Start: 03-31-2023 End: 04-01-2023 [facility] Start: 03-31-2023 Encounter for other preprocedural examination [facility] Start: 03-09-2023 End: 03-12-2023 ambulatory [facility] [facility] Start: 03-09-2023 End: 03-11-2023 Subsequent hospital visit by physician Tomeka Tidwell [facility] Comment on above: Osteopenia, unspecif ied location; Postmenopausal Start: 10-15-2022 End: 10-15-[address] DOCTOR JOHN Facility:[facility] Start: 08-24-2022 End: 08-25-2022 [facility]ulatory [facility] Start: 08-24-2022 Encounter for genera l adult medical examination without abnormal findings [facility] Start: 08-24-2022 End: 08-24-2022 Patient encounter status Jenelle Florentino APRN - BRYAN Work Phone: [email or web address] Start: 08-24-2022 End: 08-24-2022 Subsequent hospital visit by physician Jenelle Martinez CNP Work Phone: [email or web address] Comment on above: Need for hepatitis C screening test; Encounter for screening for HIV; Wellness examination; Osteopenia, unspecified location; Lipid screening; Family history of diabetes mellitus (DM) Start: 06-16-2021 ambulatory [facility] Start: 06-11-2021 End: 06-11-2021 Patient encounter status Alexys Nata MICROFABRICATION ENGINEER MANAGER - CHRONOMETER ADJUSTER Work Phone: [facility] Laboratory Start: 06-11-2021 End: 06-11-2021 Subsequent hospital visit by physician Alexys Howard APRN [facility] Work Phone: [facility] Laboratory Comment on above: Encounter for wellne ss examination in adult Start: 06-05-2021 ambulatory [facility] Start: 06-02-2021 End: 07-02-2021 Patient encounter status Alexys Yaotfried MICROFABRICATION ENGINEER MANAGER [employer] Work Phone: [facility] Work Phone: Start: 02-20-2020 End: 02-20-2020 Emergency department patient visit Feliciano Liao Work Phone: [facility] ED Comment on above: Urticaria (Primary D x) Start: 01-03-2020 End: 01-05-2020 Subsequent hospital visit by physician Tomeka Tidwell [facility] Comment on above: Well woman exam (no gynecological exam) Screening breast exa mination Start: 09-20-2019 End: 09-20-2019 Subsequent hospital visit by physician Kirstin Wei [facility] Laboratory Procedures Date Procedure Procedure Detail Performing Clinician Start: 04-12-2023 End: 04-12-2023 Colonoscopy Sarah Tamez MD Work Phone: Start: 03-09-2023 Dxa bone density vanna dy 1/> sites axial skel Jenelle Florentino MICROFABRICATION ENGINEER MANAGER [employer] CHRONOMETER ADJUSTER Work Phone: Start: 08-24-2022 End: 08-24-2022 Lipid panel Jenelle Florentino APRN [employer] CHRONOMETER ADJUSTER Work Phone: Start: 08-24-2022 Comprehensive metabo lic panel Jenelle Florentino APRN [employer] CHRONOMETER ADJUSTER Work Phone: Start: 06-11-2021 Urinalysis microscopic only Alexys Howard APRN [employer] Work Phone: Start: 06-11-2021 Urnls dip stick/tabl et rgnt auto w/o microscopy Alexys Howard MICROFABRICATION ENGINEER MANAGER - CHRONOMETER ADJUSTER Work Phone: Start: 06-11-2021 Comprehensive metabo lic panel Alexys Howard APRN - CHRONOMETER ADJUSTER Work Phone: Start: 06-11-2021 Lipid panel Alexys massey MICROFABRICATION ENGINEER MANAGER - CHRONOMETER ADJUSTER Work Phone: Start: 01-03-2020 Screening digital br east tomosynthesis bi Kirstin Wei Work Phone: Start: 09-20-2019 Blood count complete auto&auto difrntl wbc Kirstin Wei Work Phone: Start: 09-20-2019 Comprehensive metabo lic panel Kirstin Wei Work Phone: Start: 09-20-2019 Hemoglobin glycosylated a1c Kirstin Wei Work Phone: Start: 09-20-2019 Lipid panel Kirstin moody Work Phone: Plan of Treatment Date Care Activity Detail Author Start: 04-12-2033 Screening for malign ant neoplasm of [facility] Start: 02-20-2030 DTaP/Tdap/Td vaccine (2 - Td or Tdap) DTaP/Tdap/Td vaccine (2 - Td or Tdap) [facility] Start: 08-24-2027 Lipid panel Lipids [facility] Start: 08-24-2025 Diabetes screen Diabetes screen [facility] Start: 03-09-2025 Screening for malign ant neoplasm of breast Breast cancer [facility] Start: 09-20-2024 Lipid panel Lipid screen [facility] Start: 08-24-2023 Depression Screen Depression [facility] Start: 04-12-2023 End: 04-12-2023 Admission to same day surgery center 04/12/2023 Surgery IP Unit Sarah Tamez MD [address] [place] [address] COLORECTAL CANCER SCREENING, NOT HIGH RISK [facility] Comment on above: COLORECTAL CANCER SC REENING, NOT HIGH RISK Start: 04-12-2023 End: 04-12-2023 Colon ca scrn not hi rsk ind Start: 04-12-2023 Subsequent hospital visit by physician 04/12/2023 Hospital Encounter IP Unit Sarah Tamez MD [address] [place] [id number] [facility] Start: 03-01-2023 Influenza vaccination Flu vaccine (# 1) [facility] Start: 11-23-2022 End: 11-23-2022 Patient encounter procedure 11/23/2022 Office Visit Primary Care Jenelle Florentino, MICROFABRICATION ENGINEER MANAGER - CHRONOMETER ADJUSTER [address] [facility] [address] [address] Primary Care Start: 03-01-2022 Influenza vaccination Flu vaccine (# 1) [facility] Start: 01-02-2022 Screening for malign ant neoplasm of breast Breast cancer screen [facility] Start: 09-01-2021 End: 09-01-2021 Patient encounter procedure 09/01/2021 Office Visit Primary Care Alexys Howard, MICROFABRICATION ENGINEER MANAGER - CHRONOMETER ADJUSTER [address] [place] [address] [facility] Start: 06-19-2021 End: 06-19-2021 Patient encounter procedure 06/19/2021 Office Visit Orthopedic Surgery Vannesa Mueller PA-C [address] [place] [address] [facility] Start: 06-16-2021 End: 06-16-2021 Patient encounter procedure 06/16/2021 Appointment Radiology [facility] Start: 05-13-2021 COVID-19 Vaccine (2 - Booster for Rachna series) COVID-19 Vaccine (2 - Booster for Rachna series) [facility] Start: 04-01-2021 Influenza vaccination Flu vaccine (# 1) [facility] Start: 04-01-2020 Influenza vaccination [facility] [place] Start: 01-14-2020 End: 01-14-2020 Appointment [facility] [place] [facility] Start: 10-22-2019 End: 10-22-2019 Appointment 10/22/2019 Appointment Radiology [facility] Start: 04-01-2019 Influenza vaccination Flu vaccine (# 1) [place], [place] Start: 2009 Breast cancer screen Breast cancer s creen [place], [place] Start: 2009 Colon cancer screen colonoscopy Colon cancer screen colonoscopy [place], [place] Start: 2009 Screening for malign ant neoplasm of colon Colon cancer screen colonoscopy [place], [place] Start: 2009 Shingles Vaccine (1 of 2) Shingles Vaccine (1 of 2) [facility] Start: 2004 Screening for malign ant neoplasm of colon [facility] Start: 1999 Lipid screen Lipid screen [place], [place] Start: 1980 Cervical cancer screen Cervical canc er screen [place], [place] Start: 1980 Screening for malign ant neoplasm of cervix Cervical cancer screen [place], [place] Start: 1978 DTaP/Tdap/Td vaccine (1 - Tdap) DTaP/Tdap/Td vaccine (1 - Tdap) [place], [place] Start: 1974 HIV screen HIV screen [place], [place] Start: 1974 HIV screening HIV screen [facility] Start: 1970 DTaP/Tdap/Td vaccine (1 - Tdap) DTaP/Tdap/Td vaccine (1 - Tdap) [place], [place] Start: 1965 Pneumococcal 0-64 ye ars Vaccine (1 - PCV) Pneumococcal 0-64 years Vaccine (1 - PCV) [facility] Start: 1959 Hepatitis C screen Hepatitis C scree n [place], [place] Start: 1959 Hepatitis C screening Hepatitis C sc reen [facility] DEXA BONE DENSITY AX IAL SKELETON DEXA BONE DENSITY AXIAL SKELETON Imaging Routine Well woman exam (no gynecological exam) 01/03/2020 8:25 AM EDT [place], [place] Surgical Pathology Surgical Path ology Lab Routine Colon cancer screening Release Upon Ordering for 1 Occurrences starting 04/12/2023 GERTRUDE VENITA [id number] Work Phone: Comment on above: Release Upon Orderin g for 1 Occurrences starting 04/12/2023 Immunizations Immunization Date Immunization Notes Care Provider Hugh torres 02-21-2020 tetanus toxoid, redu kalen diphtheria toxoid, and acellular pertussis vaccine, adsorbed Alexys Howard MICROFABRICATION ENGINEER MANAGER - [facility] Work Phone: [employer] Work Phone: Payers Date Payer Category Payer Private Health Insurance [facility] PL[facility] xxxxxxxxx 2019-Present [phone] [address] [place] [address] xxxxxxxxx [id number] 2019 Private Health Insurance [facility] PLAN [id number] 2019-Present [phone] [address] [place] [address] [id number] 2019 Private Health Insurance [id number] 1959 Unknown [id number] 1959 Unknown [id number] 1959 Unknown [id number] 1959 Unknown [id number] 1959 Unknown [id number] 173 1959 Unknown [id number] 173 1959 Unknown [id number] 173 1959 Unknown [id number] 173 1959 Unknown [id number] 173 1959 Unknown [id number] Social History Date Type Detail Facility Tobacco smoking stat us NCIS Unknown if ever smoked [employer] Start: 1960 Sex Assigned At Not on file [facility] [employer] [place] Exposure to SARS-CoV -2 (event) Unable to assess [employer] Start: 02-20-2020 End: 03-09-2023 Tobacco smoking status NHIS [facility] Start: 02-20-2020 End: 03-09-2023 Tobacco use and exposure Never used [employer] [place] Exposure to SARS-CoV -2 (event) Not sure [employer] Start: 06-02-2021 End: 04-12-2023 Alcohol intake Ex-drinker (finding) [employer] Phone: Start: 08-24-2022 End: 11-23-2022 History SDOH Financial 5 [employer] Work Phone: Start: 08-24-2022 End: 11-23-2022 History SDOH Food Worry 1 [employer] Work Phone: Start: 11-23-2022 History SDOH Transpo rt Non-Med 2 [employer] Start: 11-23-2022 End: 03-31-2023 History of Social function [employer] Start: 11-23-2022 End: 03-31-2023 Tobacco use panel [employer] How hard is it for y ou to pay for the very basics like food, housing, medical care, and heating Not hard at all [employer] (I/We) worried wheth er (my/our) food would run out before (I/we) got money to buy more. Never true [employer] At any time in the p ast 12 months, were you homeless or living in group home [including now]? No [employer] Start: 06-02-2021 Gender identity Identifies as female gender (finding) [employer] History of Present illness Narrative 04-12-2023 Wai Wilder RN - 04/12/2023 9:50 AM Rhys Wilder RN - 04/12/2023 9:45 AM Rhys Wilder RN - 04/12/2023 9:35 AM EDMaria Isabel Brasher RN - 03/31/2023 10:38 AM EDT Note Date & Type Note Facility 04-12-2023 History of Present illness Narrative States feel a light headed after getting up, orange juice given and states feel a little better after drinking that. Gait steady when transferring to wheelchair. Discharge Criteria Inpatients must meet Criteria 1 through 7. All other patients are either YES or N/A. If a NO is chosen then Anesthesia or Surgeon must be notified. 1. Minimum 30 minutes after last dose of sedative medication. Yes 2. Systolic BP between 90 - 160. Diastolic BP between 60 - 90. No, anesthesia aware and ok'd for discharge 3. Pulse between 60 - 120 No, anesthesia aware and ok'd for discharge 4. Respirations between 8 - 25. Yes 5. SpO2 92% - 100%. Yes 6. Able to cough and swallow or return to baseline function. Yes 7. Alert and oriented or return to baseline mental status. Yes 8. Demonstrates controlled, coordinated movements, ambulates with steady gait, or return to baseline activity function. Yes 9. Minimal or no pain or nausea, or at a level tolerable and acceptable to patient. Yes 10. Takes and retains oral fluids as allowed. Yes 11. Procedural / perioperative site stable. Minimal or no bleeding. N/A 12. If GI endoscopy procedure, minimal or no abdominal distention or passing flatus. Yes 13. Written discharge instructions and emergency telephone number provided. Yes 14. Accompanied by a responsible adult. Yes Discharge instructions given to patient and daughter with understanding voiced. No questions asked at this time. Patient states they received their colon prep instructions and home medications that are to be taken on the day of their procedure with a small sip of water only, from the physician's office. Instructed pt to stop all OTC vitamins 7 days prior to surgery. Attempted PAT phone call; no answer; message left to return PAT phone call. documented in this encounter [facility] Discharge instructions 04-12-2023 Discharge Instructions Note Date & Type Note Facility 04-12-2023 Hospital Discharg e instructions Wai Wilder RN - 04/12/2023 9:21 AM EDT SAME DAY SURGERY DISCHARGE INSTRUCTIONS 1. Do not drive or operate hazardous machinery for 24 hours. 2. Do not make important personal or business decisions for 24 hours. 3. Do not drink alcoholic beverages for 24 hours. 4. Do not smoke tobacco products for 24 hours. 5. Eat light foods (Jell-O, soups, etc....) and drink plenty of fluids (water, Sprite, etc...) up to 8 glasses per day, as you can tolerate. 6. Limit your activities for 24 hours. Do not engage in heavy work until your surgeon gives you permission. 7. Call your surgeon for any questions regarding your surgery. 8. Patient should not be left alone for 12-24 hours following surgical procedure. COLONOSCOPY DISCHARGE INSTRUCTIONS: It's normal to have a feeling of fullness or mild cramping in your abdomen afterwards due to air that is put into your bowel during the procedure. Mild activities such as walking will help you pass the air. You may resume your regular diet. You will receive a letter or phone call with your test results in 2 weeks. If you have not received a letter or a phone call in 2 weeks please call the office for your results. CALL THE DOCTOR IF YOU HAVE: Chest pain or trouble breathing. Bleeding from your rectum, vomiting or spitting up of blood that is more than a few streaks or red or black stools A fever above 101F or if you have chills Pain that is worse or different than any pain you had before the procedure Nausea or vomiting that lasts for more than 2 hours. If symptoms are to severe call 911 or go to the nearest Emergency Room. documented in this encounter [employer] Evaluation note Note Date & Type Note Facility Evaluation note Diagnosis Encounter for wellness examination in adult documented in this encounter [employer] Phone: Evaluation note Note Date & Type Note Facility Evaluation note Diagnosis Need for hepatitis C screening test Special screening examination for other specified viral diseases Encounter for screening for HIV Wellness examination Osteopenia, unspecified location Lipid screening Screening for lipoid disorders Family history of diabetes mellitus (DM) Family history of diabetes mellitus documented in this encounter [employer] Phone: Evaluation note Note Date & Type Note Facility Evaluation note Diagnosis Osteopenia, unspecified location Postmenopausal Asymptomatic postmenopausal status (age-related) (natural) Colon cancer screening Special screening for malignant neoplasms, colon documented in this encounter [employer] Evaluation note Note Date & Type Note Facility Evaluation note Diagnosis Colon cancer screening Special screening for malignant neoplasms, colon documented in this encounter [employer] Advance Directives No Advanced Directives Records FoundDocuments on File Type Date Recorded Patient Outside Maintenance Worker Expl anation Advance Directives and Living Will Power of Cover Cutter Machine Documents on File Type Date Recorded Patient Outside Maintenance Worker Expl anation Advance Directives and Living Will Power of Cover [employer] Documents on File Type Date Recorded Patient Outside Maintenance Worker Expl anation ACP-Advance Directive ACP-Power of Cover [employer] Reason for Referral Status Reason Specialty Diagnoses / Procedures Referred By Contact Referred To Contact Not Required - [facility] Diagnoses Well woman exam (no gynecological exam) Procedures DEXA BONE DENSITY AXIAL SKELETON Kirstin Wei APRN - CNP [address] [place] [address] Status Reason Specialty Diagnoses / Procedures Referred By Contact Referred To Contact Authorized Radiology Diagnoses Screening breast examination Procedures STEPHANIE DIGITAL SCREEN W OR WO CAD BILATERAL Kirstin Wie APRN - CNP [address] [place] [address] Assessments Diagnosis Well woman exam (no gynecological exam) Routine general medical examination at a health care facility Diagnosis Screening breast examination Other screening breast examination Diagnosis Urticaria Urticaria, unspecified Discharge Instructions * Instructions* Feliciano Liao MD - 02/20/2020 Please take all medications as prescribed. Please follow up with your primary care physician by calling today, or as soon as possible, for thefirst available appointment. If you do not have a primary care physician, please contact a physician or clinic listed below today to establish care. Please return to the emergency department IMMEDIATELY if you develop uncontrolled fevers, uncontrolled vomiting, change in symptoms, worsening of symptoms, or ANY other concerns. * Attachments The following attachments cannot be sent through Care Everywhere. * Urticaria (Fijian) documented in this encounter Summary Purpose Family History No Family History Records FoundNo Family History Records FoundNo Family History Records FoundNo Family History Records Found Additional Source Comments Reason for Visit (unrecogniz ed section and content) Status Reason Specialty Diagnoses / Procedures Referred By Contact Referred To Contact Not Required - [facility] Rad[facility] Diagnoses Well woman exam (no gynecological exam) Procedures DEXA BONE DENSITY AXIAL SKELETON Kirstin Wei APRN - CNP [address] [id number] Status Reason Specialty Diagnoses / Procedures Referred By Contact Referred To Contact Manual Review Required - [facility] Rad[facility] Diagnoses Encounter for screening mammogram for malignant neoplasm of breast Procedures HC MAMMO SCREENING INCL CAD IF PERF Kirstin Wei APRN - CNP [address] [place] [address] [facility] [place] [address] Reason Comments Rash Onset yesterday. Pt states she ate watermelon 3 days ago and began having rash on hands the next day, over torso today upon waking. Pt got steroid shot today with PCP Specialty Diagnoses / Procedures Referred By Savi gutierrez Referred To Contact Radiology Diagnoses Osteopenia, unspecified location Postmenopausal Procedures DEXA BONE DENSITY AXIAL SKELETON DEXA BONE DENSITY 2 SITES Jenelle Florentino MICROFABRICATION ENGINEER MANAGER - CHRONOMETER ADJUSTER [address] [facility] [address] Referral ID Status Reason Start Date Expiration Date V isits Requested Visits Authorized [id number] Pending Review 11/23/2022 11/23/2023 1 1 Specialty Diagnoses / Procedures Referred By Savi gutierrez Referred To Contact Diagnoses Colon cancer screening Colon cancer screening [Z12.11] Procedures AK COLON CA SCRN NOT HI RSK IND AK COLONOSCOPY FLX DX W/COLLJ SPEC WHEN PFRMD AK COLONOSCOPY W/BIOPSY SINGLE/MULTIPLE AK COLSC FLX W/RMVL OF TUMOR POLYP LESION SNARE TQ COLORECTAL CANCER SCREENING, NOT HIGH RISK Sarah Tamez MD [address] [place] [address] [facility] [address] [place] [address] Referral ID Status Reason Start Date Expiration Date Visits Re quested Visits Authorized [id number] 1 1 Care Teams (unrecognized sec tion and content) [employer] Helper Relationship Specialty Start Date End Date Alexys Howard APRN - CHRONOMETER ADJUSTER [address] [place] [address] PCP - General Nurse Practitioner 06/01/21 [employer] Helper Relationship Specialty Start Date End Date Jenelle Florentino MICROFABRICATION ENGINEER MANAGER - CHRONOMETER ADJUSTER [address] [facility] [place] [address] PCP - General Family Nurse Practitioner 08/24/22 [employer] Helper Relationship Specialty Start Date End Date Jenelle Florentino MICROFABRICATION ENGINEER MANAGER - CHRONOMETER ADJUSTER [address] [facility] [place] [address] PCP - General Family Nurse Practitioner 08/24/22 [employer] Helper Relationship Specialty Start Date End Date FlorentinoJenelle diaz Bruce, MICROFABRICATION ENGINEER MANAGER - CHRONOMETER ADJUSTER [address] [facility] [place] [address] PCP - General Family Nurse Practitioner 08/24/22 INFORMATION SOURCE (unrecogn ized section and content) DATE CREATED AUTHOR 06/17/2021 [facility] DATE CREATED AUTHOR AUTHOR'S ORGANIZ ATION 10/22/2022 [facility] DATE CREATED AUTHOR AUTHOR'S ORGANIZ ATION 04/16/2023 [facility] DATE CREATED AUTHOR AUTHOR'S ORGANIZ ATION 07/21/2023 [facility] dical Specialists EPIC Continuous Active and Recently Administ ered Medications (unrecognized section and content) Medication Order 04/10/2023 04/11/2023 04/12/2023 lactated ringers IV soln infusion IntraVENous, at 100 mL/hr, CONTINUOUS, Starting on Tue04/12/23 at 0745, Pre-op (day of surgery) 0756 (New Bag - Prov ider: Gayatri Teague, RADHA)0829 (NoRateChange - Provider: YAMILET Causey CRNA)0903 (Rate/Dose Change - Provider: YAMILET Causey CRNA)0945 (Stopped - Provider: Wai Wilder, RADHA) FOR RECORDS PERTAINING TO PATIENTS WHO ARE OR HAVE BEEN ENROLLED IN A CHEMICAL DEPENDENCY/SUBSTANCEABUSE PROGRAM, SOME INFORMATION MAY BE OMITTED. This clinical summary was aggregated from multiple sources. Caution should be exercised in using it in the provision of clinical care. This summary normalizes information from multiple sources, and as a consequence, information in this document may materially change the coding, format and clinical context of patient data. In addition, data may be omitted in some cases. CLINICAL DECISIONS SHOULD BE BASED ON THE PRIMARY CLINICAL RECORDS. [employer] provides no warranty or guarantee of the accuracy or completeness of information in this document.
[2023-11-13 17:30] LABS: Basophils Percent Auto 0.3 % (0.2-2.0); Eosinophils Absolute Auto 0.1 10^3/uL (0.0-0.7); Eosinophils Percent Auto 0.9 % (0.9-7.0); Hematocrit 41.1 % (36.0-48.0); Hemoglobin 13.3 g/dL (12.0-16.0); Immature Granulocytes Abs Auto 0.01 10^3/uL (0.00-0.03); Immature Granulocytes Pct Auto 0.2 % (0.0-0.5); Lymphocytes Absolute Auto 1.4 10^3/uL (1.2-3.8); Lymphocytes Percent Auto 21.1 % (20.5-60.0); Mean Corpuscular HGB Conc 32.4 g/dL (29.9-35.2); Mean Corpuscular Volume 89.7 fL (81.0-99.0); Mean Platelet Volume 10.5 fL (9.5-13.5); Monocytes Absolute Auto 0.4 10^3/uL (0.3-0.8); Neutrophils Absolute Auto 4.6 10^3/uL (1.4-6.5); Neutrophils Percent Auto 71.5 % (43.0-75.0); Platelet Count 204 10^3/uL (150-450); Red Blood Count 4.58 10^6/uL (4.20-5.40); Red Cell Distribution Width 12.5 % (11.0-15.0); White Blood Count 6.5 10^3/uL (4.0-11.0)
[2023-11-13 17:42] LABS: Creatine Kinase 159 U/L (26-192)
--- NOTE | 2023-11-13 17:45 | ED_ITS ---
HPI - Weakness General Chief complaint: Weakness Stated complaint: exhaustion Time Seen by Provider: 11/13/23 17:06 Source: patient Mode of arrival: ambulance Limitations: no limitations History of Present Illness HPI Narrative: The patient coming to the ER after she spent a few hours outside in the hot weather temp today is 70 degrees, the patient is coming to the ER after she started having some nausea and headache and feeling tired after she was spending time outside mowing the lawn and having some yard work, the patient denies any chest pain nausea vomiting or any other concerns Related Data Home Medications ?Medication ?Instructions ?Recorded ?Confirmed No Known Home Medications 08/01/23 08/01/23 Allergies Allergy/AdvReac Type Severity Reaction Status Date / Time morphine AdvReac Intermediate Verified 11/13/23 17:05 penicillin G AdvReac Intermediate Verified 11/13/23 17:05 Sulfa (Sulfonamide AdvReac Intermediate Verified 11/13/23 17:05 Antibiotics) Review of Systems ROS Status of ROS 10 or more systems reviewed and unremark able except as noted in history and below Exam Narrative Exam Narrative: Nurses notes and vital signs reviewed and patient is not hypoxic. General: Well-appearing and in no apparent distress. Skin: Warm, dry, no pallor noted. No rash. Head: Normocephalic, atraumatic. Neck: Supple, non-tender. Eye: Pupils are equal, round and EOMI. No scleral icterus. Ears, Nose, Mouth, and Throat: TM are clear, no nasal mucosal hypertrophy. Oral mucosa is moist, no posterior oropharynx erythema, uvula is mid-line Cardiovascular: Regular Rate and Rhythm without murmur, gallop or rub. Respiratory: No accessory muscle use or respiratory distress. Lungs are clear to auscultation, no wheezing, rales or rhonchi Chest Wall: no tenderness Back: No midline thoracic or lumbar vertebral tenderness. No CVA tenderness Musculoskeletal: normal ROM, no calf or popliteal tenderness, no lower extremity edema/swelling GI: Abdomen is soft, non-distended. Normal bowel sounds. No masses appreciated. No tenderness to palpation. No rebound, guarding, or rigidity noted. Neurological: A&O x4. No cranial nerve dysfunction observed. No truncal ataxia. Moves all extremities. Sensation intact. Psychiatric: Cooperative and interactive. Normal mood and affect. Constitutional Vital Signs, click to edit/add: Last Vital Signs Temp 97.5 F L 11/13/23 17:00 Pulse 65 11/13/23 17:00 Resp 18 11/13/23 17:00 BP 158/91 H 11/13/23 17:00 Pulse Ox 99 11/13/23 17:00 O2 Del Method Room Air 11/13/23 17:00 Course Vital Signs Vital signs: Vital Signs Temperature 97.5 F L 11/13/23 17:00 Pulse Rate 65 11/13/23 17:00 Respiratory Rate 18 11/13/23 17:00 Blood Pressure 158/91 H 11/13/23 17:00 Pulse Oximetry 99 11/13/23 17:00 Oxygen Delivery Method Room Air 11/13/23 17:00 Temperature 97.5 F L 11/13/23 17:00 Pulse Rate 65 11/13/23 17:00 Respiratory Rate 18 11/13/23 17:00 Blood Pressure 158/91 H 11/13/23 17:00 Pulse Oximetry 99 11/13/23 17:00 Oxygen Delivery Method Room Air 11/13/23 17:00 MDM - Weakness MDM Narrative Medical decision making narrative: The patient EKG showing sinus rhythm with a heart rate of [address] elevation or depression, The patient CBC and chemistry shows no acute pathology except for hypokalemia that was corrected with p.o. potassium The patient is feeling much better after initial hydration and she was discharged home after she did not want the CAT scan to be done The patient will continue hydration at home The patient is to follow up with primary care physician in next 2-3 days or to return to the emergency department should any of the signs or symptoms worsen or new symptoms develop. The patient agrees with the following Diagnosis and Treatment plan and the patient will be discharged home. Lab Data Labs: Lab Results 11/13/23 Range/Units 17:20 WBC 6.5 (4.0-11.0) 10^3/uL RBC 4.58 (4.20-5.40) 10^6/uL Hgb 13.3 (12.0-16.0) g/dL Hct 41.1 (36.0-48.0) % MCV 89.7 (81.0-99.0) fL MCH 29.0 (26.7-34.0) pg MCHC 32.4 (29.9-35.2) g/dL RDW 12.5 (11.0-15.0) % Plt Count 204 (150-450) 10^3/uL MPV 10.5 (9.5-13.5) fL Neut % (Auto) 71.5 (43.0-75.0) % Lymph % (Auto) 21.1 (20.5-60.0) % Pettis % (Auto) 6.0 (1.7-12.0) % Eos % (Auto) 0.9 (0.9-7.0) % Baso % (Auto) 0.3 (0.2-2.0) % Neut # (Auto) 4.6 (1.4-6.5) 10^3/uL Lymph # (Auto) 1.4 (1.2-3.8) 10^3/uL Pettis # (Auto) 0.4 (0.3-0.8) 10^3/uL Eos # (Auto) 0.1 (0.0-0.7) 10^3/uL Baso # (Auto) 0.0 (0.0-0.1) 10^3/uL Abs Immat Gran (auto) 0.01 (0.00-0.03) 10^3/uL Imm/Tot Granulo (auto) 0.2 (0.0-0.5) % Sodium 140 (136-145) mmol/L Potassium 3.1 L (3.5-5.1) mmol/L Chloride 102 (98-107) mmol/L Carbon Dioxide 26.1 (21.0-32.0) mmol/L Anion Gap 15.0 BUN 16.0 (7.0-18.0) mg/dL Creatinine 0.73 (0.55-1.02) mg/dL Est GFR ( Amer) >60 (>=60) Est GFR (Non-Af Amer) >60 (>=60) BUN/Creatinine Ratio 21.9 Glucose 103 (74-106) mg/dL Calcium 9.5 (8.5-10.1) mg/dL Magnesium 2.2 (1.8-2.4) mg/dL Total Bilirubin 0.5 (0.2-1.0) mg/dL AST 18 (15-37) U/L ALT 32 (14-59) U/L Alkaline Phosphatase 105 (46-116) U/L Total Creatine Kinase 159 (26-192) U/L Troponin I High Sens 4.6 (4.0-51.3) pg/mL Total Protein 7.0 (6.4-8.2) g/dL Albumin 3.9 (3.4-5.0) g/dL Globulin 3.1 g/dL Albumin/Globulin Ratio 1.3 Discharge Plan Discharge Patient Disposition: Still a Patient
[2023-11-13 17:46] LABS: Alanine Aminotransferase 32 U/L (14-59); Albumin Globulin Ratio 1.3; Albumin Level 3.9 g/dL (3.4-5.0); Alkaline Phosphatase 105 U/L (46-116); Aspartate Amino Transferase 18 U/L (15-37); BUN Creatinine Ratio 21.9; Bilirubin Total 0.5 mg/dL (0.2-1.0); Calcium 9.5 mg/dL (8.5-10.1); Carbon Dioxide 26.1 mmol/L (21.0-32.0); Chloride 102 mmol/L (98-107); Estimated GFR (African America >60 (>=60); Estimated GFR (Non-African Ame >60 (>=60); Globulin 3.1 g/dL; Glucose 103 mg/dL (74-106); Magnesium 2.2 mg/dL (1.8-2.4); Potassium 3.1 mmol/L (3.5-5.1); Sodium 140 mmol/L (136-145); Troponin I High Sensitivity 4.6 pg/mL (4.0-51.3)
--- NOTE | 2023-11-13 18:03 | PC.NURSE ---
PT REFUSING HEAD CT AT THIS TIME. DR SALINAS AWARE
[2023-11-13] MEDS: POTASSIUM BICARBONATE/CIT 25 MEQ TABLET EFF PO (18:34)
== END 2023-11-13 18:43 | disposition home or self-care (01) ==
PROVIDERS: Emergency Provider Emergency Medicine
DX: T67.5XXA Heat exhaustion, unspecified, initial encounter (principal); X30.XXXA Exposure to excessive natural heat, initial encounter
CPT/HCPCS: 36415; 80053; 82550; 83735; 84484; 85025; 93005; 96361; 96374; 96375; 99285

== ENCOUNTER 2024-10-16 15:58 | Emergency (ER) | payer MEDICARE, SELFPAY ==
[2024-10-16 16:02] VITALS: BP 145/85; PULSE 70; TEMP 37; O2SAT 96; BMI 29.6
--- NOTE | 2024-10-16 16:54 | ED.LOWEXI1 ---
HPI HPI - Extremity Injury (Lower) General Chief Complaint: Extremity Injury, Lower Stated Complaint: Extremity Injury, Lower Time Seen by Provider: 10/16/24 16:34 Source: patient Mode of arrival: walk-in Limitations: no limitations History of Present Illness HPI Narrative: Patient is a 64-year-old female who presents to the emergency department for an injury that occurred just prior to arrival. She states she was helping her grandchildren build a tree house when a 2 x 4 fell on her left foot. She complains of pain over the midfoot. There is no significant swelling or bruising. She is ambulatory. She took Motrin prior to arrival. No other associated injuries. Related Data Previous Rx's ?Medication ?Instructions ?Recorded ketorolac 10 mg tablet 10 mg PO TID PRN pain #10 tabs 10/16/24 Allergies Allergy/AdvReac Type Severity Reaction Status Date / Time morphine AdvReac Intermediate Vomiting Verified 10/16/24 16:02 penicillin G AdvReac Intermediate Hives Verified 10/16/24 16:02 Sulfa (Sulfonamide AdvReac Intermediate Hives Verified 10/16/24 16:02 Antibiotics) Opioid HPI Opioid Management Most Recent Pain and Opioid Data: No Data to Display Review of Systems ROS Constitutional Denies: fever or chills Ears, nose, mouth, and throat Denies: throat pain or nasal congestion Cardiovascular Denies: chest pain Respiratory Denies: shortness of breath Gastrointestinal Denies: nausea or vomiting Musculoskeletal Denies: back pain Integumentary/Breast Denies: rash Hematologic/Lymphatic Denies: easy bruising or easy bleeding PFSH PFSH Social History Little interest or pleasure in doing things: not at all Feeling down, depressed, or hopeless: not at all Exam Narrative Exam Narrative: Gen.: Awake, alert, in no distress Head: Normocephalic, atraumatic ENT: Moist mucous membranes Respiratory: No respiratory distress Extremities: 2+ left DP pulse, minimal swelling noted over the dorsum of the left foot. No lacerations or obvious deformity. Normal flexion of the toes Psych: Normal mood and affect Neuro: No focal neuro deficit Skin: Warm, dry, intact Constitutional Vital Signs, click to edit/add: Last Vital Signs Temp 98.6 F 10/16/24 16:02 Pulse 70 10/16/24 16:02 Resp 16 10/16/24 16:02 BP 145/85 H 10/16/24 16:02 Pulse Ox 96 10/16/24 16:02 O2 Del Method Room Air 10/16/24 16:02 Course Vital Signs Vital signs: Vital Signs Temperature 98.6 F 10/16/24 16:02 Pulse Rate 70 10/16/24 16:02 Respiratory Rate 16 10/16/24 16:02 Blood Pressure 145/85 H 10/16/24 16:02 Pulse Oximetry 96 10/16/24 16:02 Oxygen Delivery Method Room Air 10/16/24 16:02 Temperature 98.6 F 10/16/24 16:02 Pulse Rate 70 10/16/24 16:02 Respiratory Rate 16 10/16/24 16:02 Blood Pressure 145/85 H 10/16/24 16:02 Pulse Oximetry 96 10/16/24 16:02 Oxygen Delivery Method Room Air 10/16/24 16:02 MDM - Extremity Injury (Lower) MDM Narrative Medical decision making narrative: X-rays of the foot and ankle with no fracture or dislocation. Patient placed in an Jose wrap and postop shoe and remains neurovascularly intact. Rest, ice, elevate. NSAIDs given for home as needed. Return to the ER if symptoms change or worsen SUPERVISED APC VISIT, PHYSICIAN ATTESTATION: Based on the medical record the care appears appropriate. ? Medical Records Attestation: I reviewed the patient's medical records. Imaging Data XR foot/ankle: Attestation: I have reviewed the pertinent imaging results. Discharge Plan Discharge Chief Complaint: Extremity Injury, Lower Clinical Impression: Contusion of foot Patient Disposition: Home, Self-Care Time of Disposition Decision: 16:53 Condition: Good Prescriptions / Home Meds: New ketorolac 10 mg tablet 10 mg PO TID PRN (Reason: pain) Qty: 10 0RF Print Language: Montenegrin Instructions: Foot Contusion (ED) Referrals: Physician,Non-Staff, MD [Primary Care Provider] - 1 week Discharge Date/Time: 10/16/24 17:09
== END 2024-10-16 17:09 | disposition home or self-care (01) ==
PROVIDERS: Emergency Provider Emergency Medicine
DX: S90.32XA Contusion of left foot, initial encounter (principal); W20.8XXA Other cause of strike by thrown, projected or falling object, initial encounter
CPT/HCPCS: 73610; 73630; 99283